=== PATIENT | female | born 1960 | race Caucasian/White ===

== ENCOUNTER 2021-04-20 15:10 | Inpatient (IN) | payer MEDICARE ==
[~2021-04-20] VITALS: Ht 139.7 cm; Wt 56.0 kg
[~2021-04-20 15:10] MED LIST: BUDE0.5A NEB; CALC-104 PO; CLIN-94 PO; CYCL10TA19 PO; FEXO180T81 PO; FLUO40CA2 PO; GABA600T7 PO; GUAI-108 PO; IPRA3AMP29 NEB; IRON18TA PO; LINE600T12 PO; MAGN250T10 PO; MORP30CP12 PO; MORP30TA PO; MULT-650 PO; MUPI22OI2 TP; OMEP40CA7 PO; POTA25TA21 PO; PRED-220 PO; PRED15SO24 PO; PRED5TAB PO; TOPI25TA7 PO; VIT1CAPS12 PO; WARF-31 PO; WARF2.5T71 PO; WARF5TAB2 PO; [UNRECOGNIZED DRUG - CODE] IV
--- NOTE | 2021-04-20 15:17 | PHYS DOC ---
Past Medical History Past Medical History: COPD Additional Past Medical Histor: MRSA, OSTEOPOROSIS, PSORIATIC ARTHRITIS, SEPSIS, CHRONS Past Surgical History: Other Additional Past Surgical Histo: unknown Smoking Status: Former Smoker Alcohol Use: None Drug Use: None General Adult EDM: Chief Complaint: SHORTNESS OF BREATH HPI: HPI: Patient is a 61 year old female who is here via EMS with low oxygen saturation, cough and altered mental status. The patient is reportedly supposed to be on supplemental oxygen per nasal cannula continuously. Somehow her oxygen cannula had come off in, and EMS reports that she was saturating in the 70s on room air for them. The patient reports that she has been coughing yellow sputum for an unknown amount of time. She denies having any chest pain. She does report some shortness of breath. She is incredibly poor historian, she is drowsy, and I am unable to elicit much more helpful or meaningful information from her directly. EMS reports that her was not much more helpful to them on scene either. Upon review of records, it appears the patient has presented very similarly in the past, with history of altered mental status, hypoxic respiratory failure, as well as pneumonia. She has seen pulmonology services here. She has previous history of intubation as well. When I asked her if she took more medications than she was supposed to, she denies this. Review of Systems: Review of Systems: Limited review of systems, secondary to clinical condition and altered mental status. You systems is as documented by HPI. Heart Score: C/O Chest Pain: N/A Risk Factors: Risk Factors: DM, Current or recent (<one month) smoker, HTN, HLP, family history of CAD, obesity. Risk Scores: Score 0 - 3: 2.5% MACE over next 6 weeks - Discharge Home Score 4 - 6: 20.3% MACE over next 6 weeks - Admit for Clinical Observation Score 7 - 10: 72.7% MACE over next 6 weeks - Early Invasive Strategies Allergies: Allergies: Allergies Coded Allergies Type Severity Reaction Last Updated Verified aloe vera Allergy Intermediate 05/23/19 Yes cefepime Allergy Intermediate 06/18/19 Yes meperidine Allergy Intermediate 06/18/19 Yes sulfamethoxazole Allergy Intermediate 05/23/19 Yes trimethoprim Allergy Intermediate 05/23/19 Yes I S O L A T I O N *CONTACT* Allergy Unknown 05/24/19 Yes Physical Exam: PE: Constitutional: She is frail, chronically ill-appearing, appears much older than stated age, relatively disheveled. HENT: Normocephalic, atraumatic, oropharynx is patent and clear, mucous membranes are dry. TMs clear bilaterally. Eyes: PERRL, EOMI, conjunctiva normal, no discharge. Sclera are clear and anicteric. Neck: Neck is supple, trachea midline, no meningismus Cardiovascular: Tachycardic, regular, +2 radial and posterior tibial pulses bilaterally. Lungs & Thorax: Off with yellow sputum is noted. Coarse bilateral breath sounds, including rales and rhonchi. Equal chest rise. No wheezing. No stridor. She does speak in full sentences when she is awake. Abdomen: Abdomen soft, nondistended, no tenderness to palpation. Skin: Warm, dry, no erythema, no rash. Skin is unkempt. No large open wounds. No rash. Back: No deformity or step-offs. Extremities: No limb deformity, pelvis is stable, no peripheral edema noted, no apparent calf tenderness. Neurologic: She is drowsy, but she awakens to voice, opens her eyes to voice, l ocalizes to pain, follows commands. No facial asymmetry. She moves all 4 extremities equally. Sensation appears to be grossly intact. Gag reflex is intact. Her speech is slurred, but she is able to converse in short sentences when awake. Psychologic: Flat, bizarre affect. Current Patient Data: Vital Signs: Vital Signs Date Time Temp Pulse Resp B/P (MAP) Pulse Ox O2 Delivery O2 Flow Rate FiO2 04/20/21 15:12 98.7 101 20 96/54 (68) 95 Nasal Cannula 5.0 98.7 EKG: EKG: EKG is interpreted at 1510 Rhythm is sinus tachycardia Heart rate is 105 bpm [place] is left No STEMI Radiology/Procedures: Radiology/Procedures: IMAGING REPORT Signed PATIENT: JANET IRVIN ACCOUNT: [id number] : 1960 LOCATION: ER AGE: 61 SEX: F EXAM STATUS: PRE ER ORD. PHYSICIAN: MISSY CORADO DO REASON: AMS also cxr PROCEDURE: CT HEAD WO CONTRAST EXAM: CT Head without IV contrast CLINICAL HISTORY: Altered mental status COMPARISON: None. TECHNIQUE: Routine CT of the head without contrast. PQRS compliance statement - One or more of the following individualized dose reduction techniques were utilized for this study: 1. Automated exposure control 2. Adjustment of the mA and/or kV according to patient size 3. Use of iterative reconstruction technique FINDINGS: Examination is limited by motion artifact. There is no evidence of hemorrhage, mass or extra-axial fluid collection. Nguyen-white differentiation is maintained with no evidence of edema. There is no mass effect or shift of the intracranial structures. The ventricles, basilar cisterns and cortical sulci are normal in size and conf iguration for the patients stated age. The cerebellum and brainstem are unremarkable. The calvarium demonstrates no evidence of fracture or focal lesion. There is normal aeration of the visualized paranasal sinuses and mastoid air cells. The visualized portions of the orbits are normal. Atherosclerotic calcifications of the intracranial internal carotid and vertebral arteries is seen. IMPRESSION: No evidence for acute intracranial process. Electronically signed by: Mitchell Blum MD (04/20/2021 4:02 PM) [facility] DICTATED and SIGNED BY: MITCHELL BLUM MD DATE: 04/20/21 [id number] IMAGING REPORT Signed PATIENT: JANET IRVIN ACCOUNT: [id number] : 1960 LOCATION: ER AGE: 61 SEX: F EXAM STATUS: PRE ER ORD. PHYSICIAN: MISSY CORADO DO REASON: cough PROCEDURE: PORTABLE CHEST 1V Site ID: [id number] EXAMINATION: XR CHEST 1V. HISTORY: 61 years Female Reason: cough . COMPARISON: June 01, 2019. Findings: There is prominent interstitial markings in part chronic but appear increased from the previous exam with the small perihilar infiltrates seen. The heart size is mildly enlarged. There is no effusion or pneumothorax. The mediastinum and patrice appear unremarkable. Impression: Mild perihilar infiltrates. Electronically signed by: Awilda Rogers MD (04/20/2021 4:02 PM) [id number] DICTATED and SIGNED BY: AWILDA ROGERS MD DATE: 04/20/21 [id number] Course & Med Decision Making: Course & Med Decision Making Pertinent Labs and Imaging studies reviewed. (See chart for details) I reviewed the patient's previous admissions and consultations. It appears that infectious disease had recommended Zyvox for her last admission. However, it does appear that she has a documented history of prior aspiration pneumonia. She is empirically given IV Zosyn. It does not appear as if she has been admitted within the last 90 days. She does appear to have likely urinary tract infection, though I am unable to elicit any subjective symptoms of UTI from her, however empiric antibiotics are given, as above. She is still protecting her airway. Her oxygen is titrated up to 5 L. She is still quite drowsy but wakes up and converses then falls back asleep. No indication for intubation at this time. A dose of IV Narcan was given, and she did seem to arouse with this. She may ultimately require a Narcan drip, though this does not appear to be necessary at this time. I have explained my recommendation for admission. She was accepted for admission by Dr. Johnson. Teri Disclaimer: Teri Disclaimer: This electronic medical record was generated, in whole or in part, using a voice recognition dictation system. Departure Departure Impression: Primary Impression: Altered mental status Additional Impressions: Pneumonia Chronic respiratory failure with hypoxia COPD (chronic obstructive pulmonary disease) Disposition: ADMITTED INPATIENT Admitting Physician: JEANIE Condition: GUARDED Referrals: MAURICIO MÉNDEZ BRIDGE CONTRACTOR (PCP) MISSY CORADO DO Apr 20, 2021 15:17
[2021-04-20] MEDS ORDERED: IV NORMAL SALINE 1000ML BAG 1,000 ML IV ONE (15:30)
[2021-04-20] MEDS ORDERED: NALOXONE 0.4 MG/ML VIAL. IV ONE ×2 (15:30→19:00)
--- NOTE | 2021-04-20 16:04 | RAD ---
EXAM: CT Head without IV contrast CLINICAL HISTORY: Altered mental status COMPARISON: None. TECHNIQUE: Routine CT of the head without contrast. PQRS compliance statement - One or more of the following individualized dose reduction techniques wer e utilized for this study: 1. Automated exposure control 2. Adjustment of the mA and/or kV according to patient size 3. Use of iterative reconstruction technique FINDINGS: Examination is limited by motion artifact. There is no evidence of hemorrhage, mass or extra-axial fluid collection. Nguyen-white differentiation is maintained with no evidence of edema. There is no mass effect or shift of the intracranial structures. The ventricles, basilar cisterns and cortical sulci are normal in size and configuration for the madai ents stated age. The cerebellum and brainstem are unremarkable. The calvarium demonstrates no evidence of fracture or focal lesion. There is normal aeration of the visualized paranasal sinuses and mastoid air cells. The visualized portions of the orbits are normal. Atherosclerotic calcifications of the intracranial internal carotid and vertebral arteries is seen. IMPRESSION: No evidence for acute intracranial process. Electronically signed by: Mitchell Lyons MD (04/20/2021 4:02 PM) LILY
--- NOTE | 2021-04-20 16:04 | RAD ---
Site ID: [id number] EXAMINATION: XR CHEST 1V. HISTORY: 61 years Female Reason: cough . COMPARISON: June 01, 2019. Findings: There is prominent interstitial markings in part chronic but appear increased from the prev ious exam with the small perihilar infiltrates seen. The heart size is mildly enlarged. There is no e ffusion or pneumothorax. The mediastinum and patrice appear unremarkable. Impression: Mild perihilar infiltrates. Electronically signed by: Alberto Rogers MD (04/20/2021 4:02 PM) [id number]
[2021-04-20 16:26] LABS: BILIRUBIN,URINE NEGATIVE (NEG); CLARITY,URINE CLEAR; COLOR,URINE YELLOW; NITRITE,URINE NEGATIVE (NEG); PROTEIN,URINE NEGATIVE (NEG-TRACE)
[2021-04-20 16:34] LABS: BARBITURATES NEG (NEG); BENZODIAZEPINES NEG (NEG); CANNABINOIDS NEG (NEG); COCAINE NEG (NEG); METHADONE NEG (NEG); OPIATES POS (NEG); PHENCYCLIDINE NEG (NEG)
[2021-04-20 16:43] LABS: BASO # 0.1 x10^3/uL (0.0-0.2); BASO % 1 % (0-3); EOS # 0.3 x10^3/uL (0.0-0.7); EOS % 2 % (0-3); HEMATOCRIT 35.4 % (36.0-47.0); HEMOGLOBIN 11.7 g/dL (12.0-15.5); LYMPH # 2.8 x10^3/uL (1.0-4.8); LYMPH % 20 % (24-48); MEAN CORPUSCULAR HEMOGLOBIN 26 pg (25-35); MEAN CORPUSCULAR HGB CONC 33 g/dL (31-37); MEAN CORPUSCULAR VOLUME 80 fL (79-100); MONO # 1.3 x10^3/uL (0.0-1.1); MONO % 9 % (0-9); NEUT # 9.6 x10^3/uL (1.8-7.7); NEUT % 68 % (31-73); PLATELET COUNT 233 x10^3/uL (140-400); RED BLOOD COUNT 4.44 x10^6/uL (3.50-5.40); RED CELL DISTRIBUTION WIDTH 15.5 % (11.5-14.5); WHITE BLOOD COUNT 14.1 x10^3/uL (4.0-11.0)
[2021-04-20 16:58] LABS: AMPHETAMINE/METHAMPHETAMINE NEG (NEG)
[2021-04-20 17:00] LABS: AMORPHOUS SEDIMENT,UR PRESENT /HPF; BACTERIA,URINE MODERATE /HPF (0-FEW)
[2021-04-20 17:01] LABS: RBC,URINE 0 /HPF (0-2)
[2021-04-20 17:39] LABS: % BANDS 1 % (0-9); % EOS 3 % (0-5); % LYMPHS 27 % (24-48); % MONOS 5 % (0-10); % SEGS 64 % (35-66)
[2021-04-20 17:40] LABS: PLT ESTIMATE ADEQUATE (ADEQUATE); POIKILOCYTOSIS SLIGHT; TEAR DROP CELLS OCC
[2021-04-20 17:42] LABS: ANISOCYTOSIS SLIGHT; CALCIUM 8.4 mg/dL (8.5-10.1); CREATININE 0.5 mg/dL (0.6-1.0); OVALOCYTES OCC; POTASSIUM 4.4 mmol/L (3.5-5.1)
[2021-04-20 17:49] LABS: ALBUMIN 3.2 g/dL (3.4-5.0); MAGNESIUM 1.9 mg/dL (1.8-2.4); TOTAL BILIRUBIN 0.4 mg/dL (0.2-1.0); TOTAL PROTEIN 6.5 g/dL (6.4-8.2)
[2021-04-20] MEDS ORDERED: methylPREDNISolone SOD SUCC PF 125 MG/2 ML VIAL. IV ONE (18:30)
[2021-04-20] MEDS: IV NORMAL SALINE 1000ML BAG 1,000 ML IV ONE (19:00)
[2021-04-20] MEDS ORDERED: ONDANSETRON PF 4 MG/2 ML VIAL. IVP PRN (19:00)
[2021-04-20] MEDS: PIPERACILLIN/TAZOBACTAM 3.375 GM in IV NORMAL SALINE 50ML 50 ML IV SCH (19:00)
[2021-04-21] VITALS (7 sets, daily range): BP systolic 100–122; BP diastolic 53–79
[2021-04-21] MEDS: PIPERACILLIN/TAZOBACTAM 3.375 GM in IV NORMAL SALINE 50ML 50 ML IV SCH ×5 (00:14→23:46)
[2021-04-21] MEDS: IV NORMAL SALINE 1000ML BAG 1,000 ML IV ONE (00:18)
--- NOTE | 2021-04-21 00:36 | NUR ---
The patient, JANET IRVIN, 61 y/o, F admitted by LOAN LANG III, DO, was given written information regarding hospital policies, unit procedures and contact persons. Valuables were checked and left with her.
--- NOTE | 2021-04-21 04:59 | EKG ---
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
--- NOTE | 2021-04-21 09:19 | PDOC ---
PULMONARY PROGRESS NOTES DATE: 04/21/21 TIME: 09:19 Vitals Vital Signs Date Time Temp Pulse Resp B/P (MAP) Pulse Ox O2 Delivery O2 Flow Rate FiO2 04/21/21 07:00 98.0 80 18 100/61 (74) 96 98.0 04/21/21 00:01 Nasal Cannula 5.0 General: Alert, No acute distress Lungs: Clear, Crackles Cardiovascular: S1, S2 Abdomen: Soft, Non-tender, Other Extremities: No Edema, Other Labs Laboratory Tests Test 04/20/21 16:15 04/20/21 16:28 04/20/21 18:20 Urine Collection Type U cath Urine Color Yellow Urine Clarity Clear Urine pH 7.0 (<5.0-8.0) Urine Specific [place] 1.015 (1.000-1.030) Urine Protein Negative mg/dL (NEG-TRACE) Urine Glucose (UA) Negative mg/dL (NEG) Urine Ketones (Stick) 15 mg/dL (NEG) Urine Blood Negative (NEG) Urine Nitrite Negative (NEG) Urine Bilirubin Negative (NEG) Urine Urobilinogen Dipstick 1.0 mg/dL (0.2 mg/dL) Urine Leukocyte Esterase Negative (NEG) Urine RBC 0 /HPF (0-2) Urine WBC 5-10 /HPF (0-4) Urine Squamous Epithelial Cells Few /LPF Urine Amorphous Sediment Present /HPF Urine Bacteria Moderate /HPF (0-FEW) Urine Mucus Slight /LPF Urine Opiates Screen Pos (NEG) Urine Methadone Screen Neg (NEG) Urine Barbiturates Neg (NEG) Urine Phencyclidine Screen Neg (NEG) Urine Amphetamine/Methamphetamine Neg (NEG) Urine Benzodiazepines Screen Neg (NEG) Urine Cocaine Screen Neg (NEG) Urine Cannabinoids Screen Neg (NEG) Urine Ethyl Alcohol Neg (NEG) White Blood Count 14.1 x10^3/uL (4.0-11.0) Red Blood Count 4.44 x10^6/uL (3.50-5.40) Hemoglobin 11.7 g/dL (12.0-15.5) Hematocrit 35.4 % (36.0-47.0) Mean Corpuscular Volume 80 fL (79-100) Mean Corpuscular Hemoglobin 26 pg (25-35) Mean Corpuscular Hemoglobin Concent 33 g/dL (31-37) Red Cell Distribution Width 15.5 % (11.5-14.5) Platelet Count 233 x10^3/uL (140-400) Neutrophils (%) (Auto) 68 % (31-73) Lymphocytes (%) (Auto) 20 % (24-48) Monocytes (%) (Auto) 9 % (0-9) Eosinophils (%) (Auto) 2 % (0-3) Basophils (%) (Auto) 1 % (0-3) Neutrophils # (Auto) 9.6 x10^3/uL (1.8-7.7) Lymphocytes # (Auto) 2.8 x10^3/uL (1.0-4.8) Monocytes # (Auto) 1.3 x10^3/uL (0.0-1.1) Eosinophils # (Auto) 0.3 x10^3/uL (0.0-0.7) Basophils # (Auto) 0.1 x10^3/uL (0.0-0.2) Segmented Neutrophils % 64 % (35-66) Band Neutrophils % 1 % (0-9) Lymphocytes % 27 % (24-48) Monocytes % 5 % (0-10) Eosinophils % 3 % (0-5) Platelet Estimate Adequate (ADEQUATE) Large Platelets Present Poikilocytosis Slight Basophilic Stippling Present Anisocytosis Slight Tear Drop Cells Occ Ovalocytes Occ Sodium Level 140 mmol/L (136-145) Potassium Level 4.4 mmol/L (3.5-5.1) Chloride Level 106 mmol/L (98-107) Carbon Dioxide Level 22 mmol/L (21-32) Anion Gap 12 (6-14) Blood Urea Nitrogen 15 mg/dL (7-20) Creatinine 0.5 mg/dL (0.6-1.0) Estimated GFR (Cockcroft-Gault) 125.0 BUN/Creatinine Ratio 30 (6-20) Glucose Level 96 mg/dL (70-99) Lactic Acid Level 1.2 mmol/L (0.4-2.0) Calcium Level 8.4 mg/dL (8.5-10.1) Magnesium Level 1.9 mg/dL (1.8-2.4) Total Bilirubin 0.4 mg/dL (0.2-1.0) Aspartate Amino Transf (AST/SGOT) 57 U/L (15-37) Alanine Aminotransferase (ALT/SGPT) 40 U/L (14-59) Alkaline Phosphatase 110 U/L (46-116) Ammonia 17 mcmol/L (11-34) Creatine Kinase 151 U/L (26-192) Troponin I High Sensitivity 6 ng/L (4-50) DX-Qff-A-Type Natriuretic Peptide 589 pg/mL (0-124) Total Protein 6.5 g/dL (6.4-8.2) Albumin 3.2 g/dL (3.4-5.0) Albumin/Globulin Ratio 1.0 (1.0-1.7) Ethyl Alcohol Level < 10 mg/dL (0-10) SARS-CoV-2 Antigen (Rapid) Negative (NEGATIVE) Laboratory Tests Test 04/20/21 16:15 04/20/21 16:28 04/20/21 18:20 Urine Collection Type U cath Urine Color Yellow Urine Clarity Clear Urine pH 7.0 (<5.0-8.0) Urine Specific [place] 1.015 (1.000-1.030) Urine Protein Negative mg/dL (NEG-TRACE) Urine Glucose (UA) Negative mg/dL (NEG) Urine Ketones (Stick) 15 mg/dL (NEG) Urine Blood Negative (NEG) Urine Nitrite Negative (NEG) Urine Bilirubin Negative (NEG) Urine Urobilinogen Dipstick 1.0 mg/dL (0.2 mg/dL) Urine Leukocyte Esterase Negative (NEG) Urine RBC 0 /HPF (0-2) Urine WBC 5-10 /HPF (0-4) Urine Squamous Epithelial Cells Few /LPF Urine Amorphous Sediment Present /HPF Urine Bacteria Moderate /HPF (0-FEW) Urine Mucus Slight /LPF Urine Opiates Screen Pos (NEG) Urine Methadone Screen Neg (NEG) Urine Barbiturates Neg (NEG) Urine Phencyclidine Screen Neg (NEG) Urine Amphetamine/Methamphetamine Neg (NEG) Urine Benzodiazepines Screen Neg (NEG) Urine Cocaine Screen Neg (NEG) Urine Cannabinoids Screen Neg (NEG) Urine Ethyl Alcohol Neg (NEG) White Blood Count 14.1 x10^3/uL (4.0-11.0) Red Blood Count 4.44 x10^6/uL (3.50-5.40) Hemoglobin 11.7 g/dL (12.0-15.5) Hematocrit 35.4 % (36.0-47.0) Mean Corpuscular Volume 80 fL (79-100) Mean Corpuscular Hemoglobin 26 pg (25-35) Mean Corpuscular Hemoglobin Concent 33 g/dL (31-37) Red Cell Distribution Width 15.5 % (11.5-14.5) Platelet Count 233 x10^3/uL (140-400) Neutrophils (%) (Auto) 68 % (31-73) Lymphocytes (%) (Auto) 20 % (24-48) Monocytes (%) (Auto) 9 % (0-9) Eosinophils (%) (Auto) 2 % (0-3) Basophils (%) (Auto) 1 % (0-3) Neutrophils # (Auto) 9.6 x10^3/uL (1.8-7.7) Lymphocytes # (Auto) 2.8 x10^3/uL (1.0-4.8) Monocytes # (Auto) 1.3 x10^3/uL (0.0-1.1) Eosinophils # (Auto) 0.3 x10^3/uL (0.0-0.7) Basophils # (Auto) 0.1 x10^3/uL (0.0-0.2) Segmented Neutrophils % 64 % (35-66) Band Neutrophils % 1 % (0-9) Lymphocytes % 27 % (24-48) Monocytes % 5 % (0-10) Eosinophils % 3 % (0-5) Platelet Estimate Adequate (ADEQUATE) Large Platelets Present Poikilocytosis Slight Basophilic Stippling Present Anisocytosis Slight Tear Drop Cells Occ Ovalocytes Occ Sodium Level 140 mmol/L (136-145) Potassium Level 4.4 mmol/L (3.5-5.1) Chloride Level 106 mmol/L (98-107) Carbon Dioxide Level 22 mmol/L (21-32) Anion Gap 12 (6-14) Blood Urea Nitrogen 15 mg/dL (7-20) Creatinine 0.5 mg/dL (0.6-1.0) Estimated GFR (Cockcroft-Gault) 125.0 BUN/Creatinine Ratio 30 (6-20) Glucose Level 96 mg/dL (70-99) Lactic Acid Level 1.2 mmol/L (0.4-2.0) Calcium Level 8.4 mg/dL (8.5-10.1) Magnesium Level 1.9 mg/dL (1.8-2.4) Total Bilirubin 0.4 mg/dL (0.2-1.0) Aspartate Amino Transf (AST/SGOT) 57 U/L (15-37) Alanine Aminotransferase (ALT/SGPT) 40 U/L (14-59) Alkaline Phosphatase 110 U/L (46-116) Ammonia 17 mcmol/L (11-34) Creatine Kinase 151 U/L (26-192) Troponin I High Sensitivity 6 ng/L (4-50) TP-Ucr-E-Type Natriuretic Peptide 589 pg/mL (0-124) Total Protein 6.5 g/dL (6.4-8.2) Albumin 3.2 g/dL (3.4-5.0) Albumin/Globulin Ratio 1.0 (1.0-1.7) Ethyl Alcohol Level < 10 mg/dL (0-10) SARS-CoV-2 Antigen (Rapid) Negative (NEGATIVE) Medications Active Scripts Medications Dose Route/Sig Max Daily Dose Days Date Category Budesonide 0.5 Mg/2 Ml Ampul.neb 0.5 Mg NEB RTBID 06/04/19 Rx Duoneb 0.5-3(2.5) Mg/3 Ml (Albuterol/Ipratropium) 3 Ml Ampul.neb 3 Ml NEB Q4HRS 06/04/19 Rx Morphine Sulfate Er (Morphine Sulfate) 30 Mg Cpmp.24hr 30 Mg PO BID PRN 06/04/19 Rx Warfarin Sodium 5 Mg Tablet 5 Mg PO QMWFSA 05/24/19 Reported Warfarin Sodium 2.5 Mg Tablet 2.5 Mg PO QTUTHSA 05/24/19 Reported Magnesium (Magnesium Oxide) 250 Mg Tablet 2 Tab PO DAILY 30 05/24/19 Reported Citracal + D Maximum Caplet (Calcium Citrate/Vitamin D3) 1 Each Tablet 1 Each PO DAILYBFRLUN 05/24/19 Reported Centrum Silver Women Tablet (Multivits-Min/Iron/FA/Lutein) 1 Each Tablet 1 Each PO 3X/WEEK 05/24/19 Reported Preservision Areds Softgel (Vit A/Vit C/Vit E/Zinc/Copper) 1 Each Capsule 2 Cap PO BID 30 05/24/19 Reported Klor-Con-Ef 25 Meq Tab Eff (Potassium Bicarbonate/Cit Ac) 25 Meq Tablet.eff 1 Tab PO DAILY 30 05/24/19 Reported Loraine Allergy (Fexofenadine Hcl) 180 Mg Tablet 1 Tab PO DAILY 14 05/24/19 Reported Iron 18 Mg Tablet 65 Mg PO DAILYBFRLUN 05/24/19 Reported Cyclobenzaprine Hcl 10 Mg Tablet 1 Tab PO TID 05/23/19 Reported Gabapentin 600 Mg Tablet 600 Mg PO TID 05/23/19 Reported Topiramate 25 Mg Tablet 1 Tab PO BID 30 05/23/19 Reported Fluoxetine Hcl 40 Mg Capsule 1 Cap PO DAILY 05/23/19 Reported Omeprazole 40 Mg Capsule.dr 1 Cap PO DAILY 05/23/19 Reported Impression . Full consult dictated Acute hypoxemic respiratory failure Possible aspiration pneumonia pneumonia Obtain CT GUNNAR TRIPP MD Apr 21, 2021 09:19
--- NOTE | 2021-04-21 11:15 | NUR ---
SW following. Discussed with RN, pt from home with , 5L (uses 3L at home), cardiac diet, COVID-19 negative. Pulmonology following. RN advised no SW needs at this time. SW will continue to follow.
--- NOTE | 2021-04-21 11:42 | HP ---
DATE OF SERVICE: 04/21/2021 ADMIT DATE: 04/20/2021 CHIEF COMPLAINT: Shortness of breath. HISTORY OF PRESENT ILLNESS: The patient is a pleasant 61-year-old female who has COPD. She presented to the ER with shortness of breath and cough. She is supposed to be on oxygen, but I think she is perhaps noncompliant with it at times. When EMS got there, her O2 sat was in the 70s. She has productive yellow sputum. She feels very weak. Her symptoms are worse with moving, better with sitting still. I discussed the case with ER physician. We admitted the patient with consultation to Pulmonary Medicine. PAST MEDICAL HISTORY: COPD, MRSA, osteoporosis, psoriatic arthritis, sepsis, Crohn's, previous tobacco abuse, polypharmacy, allergic rhinitis, asthma, muscle spasms, anemia, chronic anticoagulation, chronic pain, neuropathy, depression and anxiety. ALLERGIES: ALOE VERA, CEFEPIME, MEPERIDINE, SULFA AND TRIMETHOPRIM. FAMILY HISTORY: Diabetes. SOCIAL HISTORY: She quit smoking. No drink or drugs. MEDICATIONS: Reviewed. She is on 17 medications. REVIEW OF SYSTEMS: GENERAL: No history of weight change, weakness or fevers. SKIN: No bruising, hair changes or rashes. EYES: No blurred, double or loss of vision. NOSE AND THROAT: No history of nosebleeds, hoarseness or sore throat. HEART: No history of palpitations, chest pain or shortness of breath on exertion. LUNGS: She complains of shortness of breath. GASTROINTESTINAL: Denies changes in appetite, nausea, vomiting, diarrhea or constipation. GENITOURINARY: No history of frequency, urgency, hesitancy or nocturia. NEUROLOGIC: Denies history of numbness, tingling, tremor or weakness. PSYCHIATRIC: No history of panic, anxiety or depression. ENDOCRINE: No history of heat or cold intolerance, polyuria or polydipsia. EXTREMITIES: Denies muscle weakness, joint pain, pain on walking or stiffness. PHYSICAL EXAMINATION: VITALS: Within normal limits and are stable. GENERAL: No apparent distress. Alert and oriented. HEENT: Normal cephalic atraumatic, external auditory canals are patent. EYES: Extraocular muscles are intact, pupils are equally round and reactive to light and accommodation. MUSCULOSKELETAL: Well developed, well nourished, good range of motion. ENDOCRINE: No thyromegaly was palpated. LYMPHATICS: No cervical chain or axillary nodes were noted. HEMATOPOIETIC: No bruising. NECK: Supple, no JVD, no thyromegaly was noted. LUNGS: She has decreased breath sounds. HEART: RRR, S1, S2 present. Peripheral pulses intact, no obvious murmurs were noted. ABDOMEN: Soft, nontender. Positive bowel sounds no organomegaly, normal bowel sounds. EXTREMITIES: Without any cyanosis, clubbing, or edema. Pedal pulses intact, Homans sign is negative. NEUROLOGIC: Normal speech, normal tone. A and O x 3, moves all extremities, no obvious focal deficits. PSYCHIATRIC: Normal affect, normal mood. Stable. SKIN: No ulcerations or rashes, good skin turgor, no jaundice. VASCULAR: Good capillary refill, neurovascular bundle appears to be intact. LABORATORY DATA: White count is 14, hemoglobin is 11.7, platelets 233. Electrolytes are normal. Troponin is 6. BNP 589. Drug screen positive for opiates. Urinalysis negative. COVID testing negative. Chest x-ray: Mild peripheral infiltrates. ASSESSMENT AND PLAN: Respiratory failure, probably secondary to pneumonia and chronic obstructive pulmonary disease. The patient has been admitted. We are starting IV Solu-Medrol, IV antibiotics, DuoNebs, O2 per nasal cannula. Home meds. Deep venous thrombosis prophylaxis. Full code. Consult Pulmonary Medicine. Long-term prognosis is guarded. MARIO DR: Balwinder TID: [id number]
[2021-04-21] MEDS: IPRATRPIUM/ALBUTEROL 0.5/2.5MG 3 ML NEBU. NEB SCH ×3 (12:00→20:39)
[2021-04-21] MEDS: methylPREDNISolone SOD SUCC PF 40 MG/ML VIAL. IV SCH ×2 (12:00→21:45)
--- NOTE | 2021-04-21 12:49 | NUR ---
HOME MEDICATION LIST- FLUOXETINE CAP 40MG- 1 CAP BY MOUTH DAILY NARATRIPTAN TAB 2.5 MG- TAKE 1 TAB BY MOUTH AT ONSET, MAY REPEAT IN 2 HOURS IF NEEDED TOPIRAMATE TAB 50 MG- TAKE ONE AND ONE HALF TABLET BY MOUTH EVERY 12 HOURS PREGABALIN CAP 100 MG- TAKE 1 CAP BY MOUTH IN MORNING, THEN ONE CAP IN THE AFTERNOON, AND 2 CAPS AT BEDTIME WARFARIN TAB 5 MG- TAKE 1 TAB BY MOUTH DIRECTED WARFARIN TAB 2.5 MG- 1 TAB BY MOUTH ONCE A DAY TIZANIDINE TAB 2 MG- TAKE ONE TAB BY MOUTH BID NEEDED. MAY ALSO TAKE 2 TAB AT BEDTIME NEEDED. HYDROXYZ HCL TAB 25MG- TAKE ONE TAB BY MOUTH 4 TIMES A DAY NEEDED ROSUVASTATIN TAB 20MG- TAKE ONE TAB BY MOUTH ONCE A DAY
--- NOTE | 2021-04-21 14:29 | NUR ---
Bedside Swallow evaluation completed. Please refer to full report in intervention section for additional information. Impressions: Mild oropharyngeal dysphagia w/ increased risk of aspiration when pt not sitting upright or leaning to L. Primary concern is poor mastication r/t dentition issues and positioning. No overt s/s aspiration during evaluation including repetitive large bore straw drinking and mixed consistencies. While pt would benefit from modified diet, however pt and pt's strongly refuse. Recommendations: Continue current diet, sit upright w/ positioning not to lean L. Nutrition consult. ST f/u 1-2 visits for ongoing assessment of swallow safety and education.
[2021-04-21] MEDS ORDERED: WARF-31 PO (15:12)
[2021-04-21] MEDS ORDERED: CRESTOR40 MG PO (15:12)
[2021-04-21] MEDS ORDERED: FLUO40CA2 PO (15:12)
[2021-04-21] MEDS ORDERED: NARA2.5T PO (15:12)
[2021-04-21] MEDS ORDERED: TIZA-75 PO ×2 (15:12)
[2021-04-21] MEDS ORDERED: TOPI50TA8 PO (15:12)
[2021-04-21] MEDS ORDERED: HYDR25TA PO (15:12)
[2021-04-21] MEDS ORDERED: PREG100C PO ×2 (15:12)
[2021-04-21] MEDS ORDERED: WARF2.5T71 PO (15:12)
--- NOTE | 2021-04-21 16:29 | CONS ---
DATE OF CONSULTATION: 04/21/2021 ATTENDING PHYSICIAN: Suellen Johnson DO REASON FOR CONSULTATION: The patient is seen in pulmonary consultation at the request of Dr. Johnson for abnormal x-ray. HISTORY OF PRESENT ILLNESS: The patient is a 61-year-old female who presented via EMS for low oxygen saturation, cough and altered mental status. She was admitted, placed on IV antibiotics, oxygen supplementation. Chest x-ray was obtained. I personally reviewed it, there is a right upper lobe infiltrate, which is new. The patient is currently on IV Zosyn. She is also receiving nebulized treatments and now Solu-Medrol. According to the Emergency Room record, the patient initially was lethargic and confused. She appears to have improved since then. PAST MEDICAL HISTORY: Remarkable for previous admission here in 2019. I saw her at that time, she had respiratory failure, hypercapnic in nature and possible pneumonia. She was treated for acute exacerbation of chronic obstructive pulmonary disease. At that time, she was intubated. She was successfully extubated and discharged home. The patient states that since then she has not smoked. She has a history of chronic bronchitis, hypertension, obstructive sleep apnea. PAST SURGICAL HISTORY: Discontinued tobacco use in 2019. MEDICATIONS: Current medication list was reviewed. Home medication list was likewise reviewed. ALLERGIES: SHE HAS MULTIPLE ALLERGIES PLEASE SEE THE LIST. SHE IS ALLERGIC TO SULFAMETHOXAZOLE, TRIMETHOPRIM, CEFEPIME AND MEPERIDINE. FAMILY HISTORY: Noncontributory. PHYSICAL EXAMINATION: VITAL SIGNS: Stable. O2 saturation currently on 5 liters was greater than 92%. HEENT: Eyes: The sclerae were nonicteric. NECK: Jugular venous distention was not elevated. No lymphadenopathy. CHEST: Full expansion. LUNGS: Rales and rhonchi throughout both lung medrano. CARDIOVASCULAR: Regular rate and rhythm with S1, S2, no S3. ABDOMEN: Soft. EXTREMITIES: No clubbing, cyanosis. Minimal edema. NEUROLOGIC: The patient was awake, alert, following commands. A detailed neuro exam was not performed. LABORATORY DATA: Reviewed. Serology for SARS-CoV-2 was negative. UA was noted. Toxicology screen was positive for opiates. Electrolytes were noted. BUN and creatinine normal. Albumin was slightly low. White count was 14,000, hemoglobin and hematocrit were noted. Chest x-ray as indicated above. IMPRESSION: 1. Acute hypoxemic respiratory failure, multifactorial. 2. Abnormal x-ray, compatible with right upper lobe infiltrates, suspect possible aspiration. 3. Abnormal x-ray. 4. Acute exacerbation of chronic obstructive pulmonary disease. 5. Tobacco dependence in remission since 2019. 6. Toxic encephalopathy, present upon admission. 7. Protein malnutrition, present upon admission. 8. Leukocytosis. PLAN: 1. Recommend continued support with oxygen supplementation. 2. Zosyn. 3. Solu-Medrol. 4. Obtain CT chest to better delineate the infiltrates. 5. Speech evaluation. 6. Titrate FiO2 down. I do appreciate the privilege in sharing in the patient's care. MAGDY/TREVOR DR: Lexi TID: [id number]
--- NOTE | 2021-04-21 16:49 | RAD ---
EXAM: CT CHEST WITHOUT CONTRAST HISTORY: Infiltrate COMPARISON: CT chest 06/18/2019 and chest radiograph 04/20/2021 TECHNIQUE: Helical CT of the chest performed without contrast. Coronal and sagittal reformats were o btained. One or more of the following individualized dose reduction techniques were utilized for this examinat ion: 1. Automated exposure control 2. Adjustment of the mA and/or kV according to patient size 3. Use of iterative reconstruction technique. FINDINGS: Thyroid gland and thoracic inlet: Unremarkable. Heart and great vessels: The heart is normal in size. There are coronary artery calcifications. No pe ricardial effusion. Thoracic aorta is normal in caliber. Mediastinum and ptarice: There are small mediastinal and hilar lymph nodes, nonspecific. Lungs and pleura: There are consolidative opacities in the lower lobes. Mild patchy ground glass opac ities in the right upper lobe and right middle lobe. Suspect mild emphysema. No pleural effusion. Chest wall and axillae: No axillary lymphadenopathy. Chest wall is unremarkable. Upper abdomen: The visualized portion of the upper abdomen is unremarkable. Bones: There has been progressive height loss of the T12 compression fracture since 06/18/2019, now s evere with vertebral plana deformity and new 6 mm retropulsion of the posterior cortex. This results in moderate to severe canal narrowing. There is also worsened, severe height loss of the T5 compressi on fracture, now 75 percent vertebral body height loss anteriorly. Slight posterior bulging but no re tropulsion of the posterior cortex. There is no acute fracture. Other: There is a spinal stimulator with the battery generator in the lower left back and lead extend ing along the thoracic canal. IMPRESSION: 1. Confluent opacities in the lower lobes and mild groundglass opacities in the right upper and midd le lobes, suspicious for pneumonia. 2. Worsened T12 vertebral body fracture, now severe with vertebral plana deformity and 6 mm retropul kosta of the posterior cortex. This results in moderate to severe canal narrowing. This has worsened f 2018 but is of uncertain acuity. Correlate with physical exam. MRI of the thoracic spine could be obtained to further evaluate if there is concern for acute cord compression. 3. Worsened, now severe height loss of the T5 compression fracture without retropulsion of cortex. FOR INTERNAL CODING PURPOSES Critical result: Findings discussed with the patient's nurse at 04/21/2021 4:45 PM. RESULT CODE: (C) Electronically signed by: Jen Matson MD (04/21/2021 4:47 PM) [id number]
[2021-04-21] MEDS ORDERED: tiZANidine 4 MG TABLET. PO PRN (17:30)
[2021-04-21] MEDS ORDERED: hydrOXYzine 25 MG TABLET PO PRN (17:30)
[2021-04-21 19:25] LABS: PROTHROMBIN TIME PATIENT 49.8 SEC (11.7-14.0)
[2021-04-21] MEDS: tiZANidine 4 MG TABLET. PO PRN (21:43)
[2021-04-21] MEDS: TOPIRAMATE 25 MG TABLET. PO SCH (21:44)
[2021-04-21] MEDS: ATORVASTATIN CALCIUM 40 MG TABLET. PO SCH (21:44)
[2021-04-21] MEDS: PREGABALIN 50 MG CAPSULE PO SCH (21:44)
[2021-04-22 03:00] VITALS: BP 122/73
[2021-04-22 04:50] LABS: PROTHROMBIN TIME PATIENT 41.8 SEC (11.7-14.0)
--- NOTE | 2021-04-22 05:00 | NUR ---
Critical INR 4.5 reported to Yasmine BRYANT at 0501am
[2021-04-22] MEDS: PIPERACILLIN/TAZOBACTAM 3.375 GM in IV NORMAL SALINE 50ML 50 ML IV SCH ×4 (05:49→23:54)
[2021-04-22] MEDS: IPRATRPIUM/ALBUTEROL 0.5/2.5MG 3 ML NEBU. NEB SCH ×4 (07:29→20:00)
[2021-04-22 07:30] VITALS: BP 102/54
--- NOTE | 2021-04-22 08:12 | PDOC ---
[facility] PROGRESS NOTE Date of Service DOS: DATE: 04/22/21 TIME: 08:08 Chief Complaint Chief Complaint Pneumonia Chronic Respiratory Failure with Hypoxia COPD AMS Osteoporosis Psoriatic Arthritis Sepsis Crohn's Disease Potential Acute Cord Compression (due to worsened height of T5 compression fracture from chest CT) History of Present Illness History of Present Illness 04/22: Pt was seen, evaluated, and their chart was reviewed. Pt states that she's feeling okay and inquiring about her Chest CT scan in which she was explained she has pneumonia. Discussed with RN and SW. Vitals/I&O Vitals/I&O: Vital Signs Date Time Temp Pulse Resp B/P (MAP) Pulse Ox O2 Delivery O2 Flow Rate FiO2 04/22/21 07:30 98.5 79 18 102/54 (70) 96 Nasal Cannula 5.0 98.5 I & O 04/21/21 04/21/21 04/22/21 15:00 23:00 07:00 Intake Total 190 ml 250 ml 400 ml Output Total 300 ml 300 ml Balance 190 ml -50 ml 100 ml Physical Exam General: Alert, Cooperative, No acute distress Heart: Regular rate Lungs: Other (COPD, Pneumonia) Abdomen: Normal bowel sounds Extremities: No clubbing, No cyanosis, No edema Skin: No rashes Labs Labs: Laboratory Tests Test 04/21/21 19:00 04/22/21 03:20 Prothrombin Time 49.8 SEC (11.7-14.0) 41.8 SEC (11.7-14.0) Prothromb Time International Ratio 5.7 (0.8-1.1) 4.5 (0.8-1.1) Review of Systems Review of Systems: ROS Negative Assessment and Plan Assessmemt and Plan Problems Medical Problems: (1) Altered mental status Status: Acute (2) Chronic respiratory failure with hypoxia Status: Acute (3) COPD (chronic obstructive pulmonary disease) Status: Acute (4) Pneumonia Status: Acute Pneumonia Chronic Respiratory Failure with Hypoxia COPD AMS Osteoporosis Psoriatic Arthritis Sepsis Crohn's Disease Potential Acute Cord Compression (due to worsened height of T5 compression fracture from chest CT) Plan: - Continue IV Abx and fluids, and give oxygen as needed - Trend labs - DVT Prophylaxis - PTOT Appreciate subspecialist input Encourage p.o. intake Home meds FULL CODE Comment Review of Relevant I have reviewed the following items fernando (where applicable) has been applied. Medications: Current Medications Medications (Trade) Dose Ordered Sig/Hodan Route PRN Reason Start Time Stop Time Status Last Admin Dose Admin Methylprednisolone Sodium Succinate (SOLU-Medrol 40MG VIAL) 40 mg BID IV 04/21/21 12:00 04/21/21 21:45 Albuterol/ Ipratropium (Duoneb) 3 ml RTQID NEB 04/21/21 12:00 04/22/21 07:29 Tizanidine HCl (Zanaflex) 4 mg PRN QHS PRN PO MUSCLE SPASMS 04/21/21 17:30 04/21/21 21:43 Pregabalin (Lyrica) 200 mg HS PO 04/21/21 21:00 04/21/21 21:44 Atorvastatin Calcium (Lipitor) 80 mg QHS PO 04/21/21 21:00 04/21/21 21:44 Topiramate (Topamax) 75 mg Q12HR PO 04/21/21 21:00 04/21/21 21:44 Warfarin Sodium (Coumadin Per Pharmacy) 1 each PRN DAILY PRN MC SEE COMMENTS 04/21/21 17:30 04/21/21 17:48 Warfarin Sodium (Coumadin - No Dose Today) 1 each 1X ONCE MC 04/21/21 21:00 04/21/21 21:01 DC 04/21/21 21:00 Justifications for Admission Other Justification LOAN LANG III DO Apr 22, 2021 08:12
[2021-04-22] MEDS: FLUoxetine HCL 20 MG CAPSULE PO SCH (08:42)
[2021-04-22] MEDS: methylPREDNISolone SOD SUCC PF 40 MG/ML VIAL. IV SCH ×2 (08:42→20:36)
[2021-04-22] MEDS: PREGABALIN 50 MG CAPSULE PO SCH ×3 (08:43→20:37)
[2021-04-22] MEDS: TOPIRAMATE 25 MG TABLET. PO SCH ×2 (08:45→20:38)
--- NOTE | 2021-04-22 09:13 | PDOC ---
PULMONARY PROGRESS NOTES DATE: 04/22/21 TIME: 09:13 Subjective Patient feels about the same, shortness of breath, cough nonproductive Vitals Vital Signs Date Time Temp Pulse Resp B/P (MAP) Pulse Ox O2 Delivery O2 Flow Rate FiO2 04/22/21 07:30 98.5 79 18 102/54 (70) 96 Nasal Cannula 5.0 98.5 ROS: No Nausea, No Chest Pain, No Abdominal Pain, No Increase Cough General: Alert, No acute distress Lungs: Other (COPD, Pneumonia) Cardiovascular: S1, S2 Abdomen: Soft, Non-tender, Other Extremities: No Edema, Other Labs Laboratory Tests Test 04/20/21 16:15 04/20/21 16:28 04/20/21 18:20 04/21/21 19:00 Urine Collection Type U cath Urine Color Yellow Urine Clarity Clear Urine pH 7.0 (<5.0-8.0) Urine Specific [place] 1.015 (1.000-1.030) Urine Protein Negative mg/dL (NEG-TRACE) Urine Glucose (UA) Negative mg/dL (NEG) Urine Ketones (Stick) 15 mg/dL (NEG) Urine Blood Negative (NEG) Urine Nitrite Negative (NEG) Urine Bilirubin Negative (NEG) Urine Urobilinogen Dipstick 1.0 mg/dL (0.2 mg/dL) Urine Leukocyte Esterase Negative (NEG) Urine RBC 0 /HPF (0-2) Urine WBC 5-10 /HPF (0-4) Urine Squamous Epithelial Cells Few /LPF Urine Amorphous Sediment Present /HPF Urine Bacteria Moderate /HPF (0-FEW) Urine Mucus Slight /LPF Urine Opiates Screen Pos (NEG) Urine Methadone Screen Neg (NEG) Urine Barbiturates Neg (NEG) Urine Phencyclidine Screen Neg (NEG) Urine Amphetamine/Methamphetamine Neg (NEG) Urine Benzodiazepines Screen Neg (NEG) Urine Cocaine Screen Neg (NEG) Urine Cannabinoids Screen Neg (NEG) Urine Ethyl Alcohol Neg (NEG) White Blood Count 14.1 x10^3/uL (4.0-11.0) Red Blood Count 4.44 x10^6/uL (3.50-5.40) Hemoglobin 11.7 g/dL (12.0-15.5) Hematocrit 35.4 % (36.0-47.0) Mean Corpuscular Volume 80 fL (79-100) Mean Corpuscular Hemoglobin 26 pg (25-35) Mean Corpuscular Hemoglobin Concent 33 g/dL (31-37) Red Cell Distribution Width 15.5 % (11.5-14.5) Platelet Count 233 x10^3/uL (140-400) Neutrophils (%) (Auto) 68 % (31-73) Lymphocytes (%) (Auto) 20 % (24-48) Monocytes (%) (Auto) 9 % (0-9) Eosinophils (%) (Auto) 2 % (0-3) Basophils (%) (Auto) 1 % (0-3) Neutrophils # (Auto) 9.6 x10^3/uL (1.8-7.7) Lymphocytes # (Auto) 2.8 x10^3/uL (1.0-4.8) Monocytes # (Auto) 1.3 x10^3/uL (0.0-1.1) Eosinophils # (Auto) 0.3 x10^3/uL (0.0-0.7) Basophils # (Auto) 0.1 x10^3/uL (0.0-0.2) Segmented Neutrophils % 64 % (35-66) Band Neutrophils % 1 % (0-9) Lymphocytes % 27 % (24-48) Monocytes % 5 % (0-10) Eosinophils % 3 % (0-5) Platelet Estimate Adequate (ADEQUATE) Large Platelets Present Poikilocytosis Slight Basophilic Stippling Present Anisocytosis Slight Tear Drop Cells Occ Ovalocytes Occ Sodium Level 140 mmol/L (136-145) Potassium Level 4.4 mmol/L (3.5-5.1) Chloride Level 106 mmol/L (98-107) Carbon Dioxide Level 22 mmol/L (21-32) Anion Gap 12 (6-14) Blood Urea Nitrogen 15 mg/dL (7-20) Creatinine 0.5 mg/dL (0.6-1.0) Estimated GFR (Cockcroft-Gault) 125.0 BUN/Creatinine Ratio 30 (6-20) Glucose Level 96 mg/dL (70-99) Lactic Acid Level 1.2 mmol/L (0.4-2.0) Calcium Level 8.4 mg/dL (8.5-10.1) Magnesium Level 1.9 mg/dL (1.8-2.4) Total Bilirubin 0.4 mg/dL (0.2-1.0) Aspartate Amino Transf (AST/SGOT) 57 U/L (15-37) Alanine Aminotransferase (ALT/SGPT) 40 U/L (14-59) Alkaline Phosphatase 110 U/L (46-116) Ammonia 17 mcmol/L (11-34) Creatine Kinase 151 U/L (26-192) Troponin I High Sensitivity 6 ng/L (4-50) JG-Ect-Q-Type Natriuretic Peptide 589 pg/mL (0-124) Total Protein 6.5 g/dL (6.4-8.2) Albumin 3.2 g/dL (3.4-5.0) Albumin/Globulin Ratio 1.0 (1.0-1.7) Ethyl Alcohol Level < 10 mg/dL (0-10) SARS-CoV-2 RNA (BRONWYN) Negative (Negative) SARS-CoV-2 Antigen (Rapid) Negative (NEGATIVE) Prothrombin Time 49.8 SEC (11.7-14.0) Prothromb Time International Ratio 5.7 (0.8-1.1) Test 04/22/21 03:20 Prothrombin Time 41.8 SEC (11.7-14.0) Prothromb Time International Ratio 4.5 (0.8-1.1) Laboratory Tests Test 04/21/21 19:00 04/22/21 03:20 Prothrombin Time 49.8 SEC (11.7-14.0) 41.8 SEC (11.7-14.0) Prothromb Time International Ratio 5.7 (0.8-1.1) 4.5 (0.8-1.1) Medications Active Scripts Medications Dose Route/Sig Max Daily Dose Days Date Category Budesonide 0.5 Mg/2 Ml Ampul.neb 0.5 Mg NEB RTBID 06/04/19 Rx Duoneb 0.5-3(2.5) Mg/3 Ml (Albuterol/Ipratropium) 3 Ml Ampul.neb 3 Ml NEB Q4HRS 06/04/19 Rx Morphine Sulfate Er (Morphine Sulfate) 30 Mg Cpmp.24hr 30 Mg PO BID PRN 06/04/19 Rx Warfarin Sodium 5 Mg Tablet 5 Mg PO QMWFSA 05/24/19 Reported Warfarin Sodium 2.5 Mg Tablet 2.5 Mg PO QTUTHSA 05/24/19 Reported Magnesium (Magnesium Oxide) 250 Mg Tablet 2 Tab PO DAILY 30 05/24/19 Reported Citracal + D Maximum Caplet (Calcium Citrate/Vitamin D3) 1 Each Tablet 1 Each PO DAILYBFRLUN 05/24/19 Reported Centrum Silver Women Tablet (Multivits-Min/Iron/FA/Lutein) 1 Each Tablet 1 Each PO 3X/WEEK 05/24/19 Reported Preservision Areds Softgel (Vit A/Vit C/Vit E/Zinc/Copper) 1 Each Capsule 2 Cap PO BID 30 05/24/19 Reported Klor-Con-Ef 25 Meq Tab Eff (Potassium Bicarbonate/Cit Ac) 25 Meq Tablet.eff 1 Tab PO DAILY 30 05/24/19 Reported Loraine Allergy (Fexofenadine Hcl) 180 Mg Tablet 1 Tab PO DAILY 14 05/24/19 Reported Iron 18 Mg Tablet 65 Mg PO DAILYBFRLUN 05/24/19 Reported Cyclobenzaprine Hcl 10 Mg Tablet 1 Tab PO TID 05/23/19 Reported Gabapentin 600 Mg Tablet 600 Mg PO TID 05/23/19 Reported Topiramate 25 Mg Tablet 1 Tab PO BID 30 05/23/19 Reported Fluoxetine Hcl 40 Mg Capsule 1 Cap PO DAILY 05/23/19 Reported Omeprazole 40 Mg Capsule.dr 1 Cap PO DAILY 05/23/19 Reported Impression . IMPRESSION: 1. Acute hypoxemic respiratory failure, multifactorial. 2. Abnormal x-ray, compatible with right upper lobe infiltrates, suspect possible aspiration. 3. Abnormal x-ray. 4. Acute exacerbation of chronic obstructive pulmonary disease. 5. Tobacco dependence in remission since 2019. 6. Toxic encephalopathy, present upon admission. 7. Protein malnutrition, present upon admission. 8. Leukocytosis. 9. Dysphagia Chest CT 1. Confluent opacities in the lower lobes and mild groundglass opacities in the right upper and middle lobes, suspicious for pneumonia. 2. Worsened T12 vertebral body fracture, now severe with vertebral plana deformity and 6 mm retropulsion of the posterior cortex. This results in moderate to severe canal narrowing. This has worsened from 2019 but is of uncertain acuity. Correlate with physical exam. MRI of the thoracic spine could be obtained to further evaluate if there is concern for acute cord compression. 3. Worsened, now severe height loss of the T5 compression fracture without retropulsion of cortex. Plan . Update 04/22 Continue current support Zosyn Follow dysphagia diet CT chest confirmed infiltrates right upper lobe and bases. Discussed above with at the bedside. 04/21 PLAN: 1. Recommend continued support with oxygen supplementation. 2. Zosyn. 3. Solu-Medrol. 4. Obtain CT chest to better delineate the infiltrates. 5. Speech evaluation. 6. Titrate FiO2 down. I do appreciate the privilege in sharing in the patient's care. GUNNAR TRIPP MD Apr 22, 2021 09:13
[2021-04-22 10:53] VITALS: BP 101/63
[2021-04-22 11:29] LABS: BASO % 0 % (0-3); EOS % 0 % (0-3); HEMATOCRIT 33.1 % (36.0-47.0); HEMOGLOBIN 10.7 g/dL (12.0-15.5); LYMPH # 0.9 x10^3/uL (1.0-4.8); LYMPH % 9 % (24-48); MEAN CORPUSCULAR HEMOGLOBIN 26 pg (25-35); MEAN CORPUSCULAR HGB CONC 32 g/dL (31-37); MEAN CORPUSCULAR VOLUME 81 fL (79-100); MONO # 0.2 x10^3/uL (0.0-1.1); MONO % 3 % (0-9); NEUT % 88 % (31-73); PLATELET COUNT 220 x10^3/uL (140-400); RED BLOOD COUNT 4.08 x10^6/uL (3.50-5.40); RED CELL DISTRIBUTION WIDTH 15.9 % (11.5-14.5); WHITE BLOOD COUNT 9.1 x10^3/uL (4.0-11.0)
[2021-04-22 15:09] VITALS: BP 110/61
[2021-04-22 19:00] VITALS: BP 91/48
[2021-04-22] MEDS: ATORVASTATIN CALCIUM 40 MG TABLET. PO SCH (20:37)
[2021-04-22] MEDS: tiZANidine 4 MG TABLET. PO PRN (20:44)
--- NOTE | 2021-04-22 20:58 | PDOC ---
Provider Note Date of Service: DATE: 04/22/21 TIME: 20:23 Provider Note Patient seen and examined at 1530 consulted for thoracic compression fracture admitted with SOA and cough, pneumonia reports chronic back pain, reports that she is able to walk mild tenderness of the thoracolumbar region with palpation, CABRERA CT chest with Worsened T12 vertebral body fracture, now severe with vertebral plana deformity and 6 mm retropulsion of the posterior cortex. This results in moderate to severe canal narrowing. This has worsened from 2019 but is of uncertain acuity. Worsened, now severe height loss of the T5 compression fracture without retropulsion of cortex. Patient reports that fractures have been evaluated at and because of her severe osteoporosis, surgery was not recommended Physical therapy with activity as tolerated Justifications for Admission Other Justification JULY JIM MD Apr 22, 2021 20:58
[2021-04-22 22:54] VITALS: BP 118/66
[2021-04-23] VITALS (7 sets, daily range): BP systolic 99–139; BP diastolic 52–79
[2021-04-23] MEDS: PIPERACILLIN/TAZOBACTAM 3.375 GM in IV NORMAL SALINE 50ML 50 ML IV SCH ×4 (06:12→23:41)
[2021-04-23 07:35] LABS: BASO % 0 % (0-3); EOS % 0 % (0-3); HEMATOCRIT 32.3 % (36.0-47.0); HEMOGLOBIN 10.7 g/dL (12.0-15.5); LYMPH # 1.7 x10^3/uL (1.0-4.8); LYMPH % 19 % (24-48); MEAN CORPUSCULAR HEMOGLOBIN 27 pg (25-35); MEAN CORPUSCULAR HGB CONC 33 g/dL (31-37); MEAN CORPUSCULAR VOLUME 81 fL (79-100); MONO # 0.6 x10^3/uL (0.0-1.1); MONO % 7 % (0-9); NEUT # 6.6 x10^3/uL (1.8-7.7); NEUT % 74 % (31-73); PLATELET COUNT 221 x10^3/uL (140-400); RED BLOOD COUNT 4.01 x10^6/uL (3.50-5.40); RED CELL DISTRIBUTION WIDTH 15.7 % (11.5-14.5); WHITE BLOOD COUNT 8.9 x10^3/uL (4.0-11.0)
[2021-04-23 07:47] LABS: PROTHROMBIN TIME PATIENT 32.5 SEC (11.7-14.0)
[2021-04-23] MEDS: IPRATRPIUM/ALBUTEROL 0.5/2.5MG 3 ML NEBU. NEB SCH ×4 (07:51→20:25)
[2021-04-23] MEDS: TOPIRAMATE 25 MG TABLET. PO SCH ×2 (08:28→20:46)
[2021-04-23] MEDS: FLUoxetine HCL 20 MG CAPSULE PO SCH (08:28)
[2021-04-23] MEDS: PREGABALIN 50 MG CAPSULE PO SCH ×3 (08:29→20:46)
[2021-04-23] MEDS: methylPREDNISolone SOD SUCC PF 40 MG/ML VIAL. IV SCH ×2 (08:29→20:45)
[2021-04-23 08:31] LABS: ALBUMIN 2.9 g/dL (3.4-5.0); ALBUMIN/GLOBULIN RATIO 0.8 (1.0-1.7); CALCIUM 8.5 mg/dL (8.5-10.1); CREATININE 0.7 mg/dL (0.6-1.0); GFR 84.8; TOTAL BILIRUBIN 0.3 mg/dL (0.2-1.0); TOTAL PROTEIN 6.7 g/dL (6.4-8.2)
--- NOTE | 2021-04-23 09:17 | PDOC ---
PULMONARY PROGRESS NOTES DATE: 04/23/21 TIME: 09:17 Subjective Patient is currently eating, continues to cough, not more short of air. Vitals Vital Signs Date Time Temp Pulse Resp B/P (MAP) Pulse Ox O2 Delivery O2 Flow Rate FiO2 04/23/21 07:54 97 Nasal Cannula 5.0 04/23/21 07:00 97.7 68 17 133/77 (95) 97.7 ROS: No Nausea, No Chest Pain, No Abdominal Pain, No Increase Cough General: Alert, No acute distress Lungs: Other (COPD, Pneumonia) Cardiovascular: S1, S2 Abdomen: Soft, Non-tender, Other Extremities: No Edema, Other Labs Laboratory Tests Test 04/21/21 19:00 04/22/21 03:20 04/23/21 06:45 Prothrombin Time 49.8 SEC (11.7-14.0) 41.8 SEC (11.7-14.0) 32.5 SEC (11.7-14.0) Prothromb Time International Ratio 5.7 (0.8-1.1) 4.5 (0.8-1.1) 3.3 (0.8-1.1) White Blood Count 9.1 x10^3/uL (4.0-11.0) 8.9 x10^3/uL (4.0-11.0) Red Blood Count 4.08 x10^6/uL (3.50-5.40) 4.01 x10^6/uL (3.50-5.40) Hemoglobin 10.7 g/dL (12.0-15.5) 10.7 g/dL (12.0-15.5) Hematocrit 33.1 % (36.0-47.0) 32.3 % (36.0-47.0) Mean Corpuscular Volume 81 fL (79-100) 81 fL (79-100) Mean Corpuscular Hemoglobin 26 pg (25-35) 27 pg (25-35) Mean Corpuscular Hemoglobin Concent 32 g/dL (31-37) 33 g/dL (31-37) Red Cell Distribution Width 15.9 % (11.5-14.5) 15.7 % (11.5-14.5) Platelet Count 220 x10^3/uL (140-400) 221 x10^3/uL (140-400) Neutrophils (%) (Auto) 88 % (31-73) 74 % (31-73) Lymphocytes (%) (Auto) 9 % (24-48) 19 % (24-48) Monocytes (%) (Auto) 3 % (0-9) 7 % (0-9) Eosinophils (%) (Auto) 0 % (0-3) 0 % (0-3) Basophils (%) (Auto) 0 % (0-3) 0 % (0-3) Neutrophils # (Auto) 8.0 x10^3/uL (1.8-7.7) 6.6 x10^3/uL (1.8-7.7) Lymphocytes # (Auto) 0.9 x10^3/uL (1.0-4.8) 1.7 x10^3/uL (1.0-4.8) Monocytes # (Auto) 0.2 x10^3/uL (0.0-1.1) 0.6 x10^3/uL (0.0-1.1) Eosinophils # (Auto) 0.0 x10^3/uL (0.0-0.7) 0.0 x10^3/uL (0.0-0.7) Basophils # (Auto) 0.0 x10^3/uL (0.0-0.2) 0.0 x10^3/uL (0.0-0.2) Sodium Level 143 mmol/L (136-145) Potassium Level 4.0 mmol/L (3.5-5.1) Chloride Level 107 mmol/L (98-107) Carbon Dioxide Level 26 mmol/L (21-32) Anion Gap 10 (6-14) Blood Urea Nitrogen 21 mg/dL (7-20) Creatinine 0.7 mg/dL (0.6-1.0) Estimated GFR (Cockcroft-Gault) 84.8 BUN/Creatinine Ratio 30 (6-20) Glucose Level 124 mg/dL (70-99) Calcium Level 8.5 mg/dL (8.5-10.1) Total Bilirubin 0.3 mg/dL (0.2-1.0) Aspartate Amino Transf (AST/SGOT) 26 U/L (15-37) Alanine Aminotransferase (ALT/SGPT) 32 U/L (14-59) Alkaline Phosphatase 91 U/L (46-116) Total Protein 6.7 g/dL (6.4-8.2) Albumin 2.9 g/dL (3.4-5.0) Albumin/Globulin Ratio 0.8 (1.0-1.7) Laboratory Tests Test 04/23/21 06:45 White Blood Count 8.9 x10^3/uL (4.0-11.0) Red Blood Count 4.01 x10^6/uL (3.50-5.40) Hemoglobin 10.7 g/dL (12.0-15.5) Hematocrit 32.3 % (36.0-47.0) Mean Corpuscular Volume 81 fL (79-100) Mean Corpuscular Hemoglobin 27 pg (25-35) Mean Corpuscular Hemoglobin Concent 33 g/dL (31-37) Red Cell Distribution Width 15.7 % (11.5-14.5) Platelet Count 221 x10^3/uL (140-400) Neutrophils (%) (Auto) 74 % (31-73) Lymphocytes (%) (Auto) 19 % (24-48) Monocytes (%) (Auto) 7 % (0-9) Eosinophils (%) (Auto) 0 % (0-3) Basophils (%) (Auto) 0 % (0-3) Neutrophils # (Auto) 6.6 x10^3/uL (1.8-7.7) Lymphocytes # (Auto) 1.7 x10^3/uL (1.0-4.8) Monocytes # (Auto) 0.6 x10^3/uL (0.0-1.1) Eosinophils # (Auto) 0.0 x10^3/uL (0.0-0.7) Basophils # (Auto) 0.0 x10^3/uL (0.0-0.2) Prothrombin Time 32.5 SEC (11.7-14.0) Prothromb Time International Ratio 3.3 (0.8-1.1) Sodium Level 143 mmol/L (136-145) Potassium Level 4.0 mmol/L (3.5-5.1) Chloride Level 107 mmol/L (98-107) Carbon Dioxide Level 26 mmol/L (21-32) Anion Gap 10 (6-14) Blood Urea Nitrogen 21 mg/dL (7-20) Creatinine 0.7 mg/dL (0.6-1.0) Estimated GFR (Cockcroft-Gault) 84.8 BUN/Creatinine Ratio 30 (6-20) Glucose Level 124 mg/dL (70-99) Calcium Level 8.5 mg/dL (8.5-10.1) Total Bilirubin 0.3 mg/dL (0.2-1.0) Aspartate Amino Transf (AST/SGOT) 26 U/L (15-37) Alanine Aminotransferase (ALT/SGPT) 32 U/L (14-59) Alkaline Phosphatase 91 U/L (46-116) Total Protein 6.7 g/dL (6.4-8.2) Albumin 2.9 g/dL (3.4-5.0) Albumin/Globulin Ratio 0.8 (1.0-1.7) Medications Active Scripts Medications Dose Route/Sig Max Daily Dose Days Date Category Budesonide 0.5 Mg/2 Ml Ampul.neb 0.5 Mg NEB RTBID 06/04/19 Rx Duoneb 0.5-3(2.5) Mg/3 Ml (Albuterol/Ipratropium) 3 Ml Ampul.neb 3 Ml NEB Q4HRS 06/04/19 Rx Morphine Sulfate Er (Morphine Sulfate) 30 Mg Cpmp.24hr 30 Mg PO BID PRN 06/04/19 Rx Warfarin Sodium 5 Mg Tablet 5 Mg PO QMWFSA 05/24/19 Reported Warfarin Sodium 2.5 Mg Tablet 2.5 Mg PO QTUTHSA 05/24/19 Reported Magnesium (Magnesium Oxide) 250 Mg Tablet 2 Tab PO DAILY 30 05/24/19 Reported Citracal + D Maximum Caplet (Calcium Citrate/Vitamin D3) 1 Each Tablet 1 Each PO DAILYBFRLUN 05/24/19 Reported Centrum Silver Women Tablet (Multivits-Min/Iron/FA/Lutein) 1 Each Tablet 1 Each PO 3X/WEEK 05/24/19 Reported Preservision Areds Softgel (Vit A/Vit C/Vit E/Zinc/Copper) 1 Each Capsule 2 Cap PO BID 30 05/24/19 Reported Klor-Con-Ef 25 Meq Tab Eff (Potassium Bicarbonate/Cit Ac) 25 Meq Tablet.eff 1 Tab PO DAILY 30 12/5/19 Reported Loraine Allergy (Fexofenadine Hcl) 180 Mg Tablet 1 Tab PO DAILY 14 05/24/19 Reported Iron 18 Mg Tablet 65 Mg PO DAILYBFRLUN 05/24/19 Reported Cyclobenzaprine Hcl 10 Mg Tablet 1 Tab PO TID 05/23/19 Reported Gabapentin 600 Mg Tablet 600 Mg PO TID 05/23/19 Reported Topiramate 25 Mg Tablet 1 Tab PO BID 30 05/23/19 Reported Fluoxetine Hcl 40 Mg Capsule 1 Cap PO DAILY 05/23/19 Reported Omeprazole 40 Mg Capsule.dr 1 Cap PO DAILY 05/23/19 Reported Impression . IMPRESSION: 1. Acute hypoxemic respiratory failure, multifactorial. 2. Abnormal x-ray, compatible with right upper lobe infiltrates, suspect possible aspiration. 3. Abnormal x-ray. 4. Acute exacerbation of chronic obstructive pulmonary disease. 5. Tobacco dependence in remission since 2019. 6. Toxic encephalopathy, present upon admission. 7. Protein malnutrition, present upon admission. 8. Leukocytosis. 9. Dysphagia Chest CT 1. Confluent opacities in the lower lobes and mild groundglass opacities in the right upper and middle lobes, suspicious for pneumonia. 2. Worsened T12 vertebral body fracture, now severe with vertebral plana deformity and 6 mm retropulsion of the posterior cortex. This results in moderate to severe canal narrowing. This has worsened from 2019 but is of uncertain acuity. Correlate with physical exam. MRI of the thoracic spine could be obtained to further evaluate if there is concern for acute cord compression. 3. Worsened, now severe height loss of the T5 compression fracture without retropulsion of cortex. Plan . Updated 04/23 Change antibiotics to p.o. Continue current support Possible discharge in the a.m. Update 04/22 Continue current support Zosyn Follow dysphagia diet CT chest confirmed infiltrates right upper lobe and bases. Discussed above with at the bedside. 04/21 PLAN: 1. Recommend continued support with oxygen supplementation. 2. Zosyn. 3. Solu-Medrol. 4. Obtain CT chest to better delineate the infiltrates. 5. Speech evaluation. 6. Titrate FiO2 down. I do appreciate the privilege in sharing in the patient's care. GUNNAR TRIPP MD Apr 23, 2021 09:17
--- NOTE | 2021-04-23 10:50 | NUR ---
SW following. Discussed with RN, pt from home with , uses oxygen at home, cardiac diet, COVID-19 negative. No surgery planned. PT/OT ordered. RN anticipates discharge in the next 24-48 hours. SW will continue to follow.
--- NOTE | 2021-04-23 11:09 | PDOC ---
[employer] PROGRESS NOTE Date of Service DOS: DATE: 04/23/21 TIME: 11:04 Chief Complaint Chief Complaint Pneumonia Chronic Respiratory Failure with Hypoxia COPD AMS Osteoporosis Psoriatic Arthritis Sepsis Crohn's Disease Potential Acute Cord Compression (due to worsened height of T5 compression fracture from chest CT) Tobacco dependence in remission since 2019 Dysphagia History of Present Illness History of Present Illness 04/23: Pt was seen, evaluated, and their chart was reviewed. Pt is feeling fine for the most part, but her reports she's been a lot more confused lately with brain fog. Discussed with RN and SW. 04/22: Pt was seen, evaluated, and their chart was reviewed. Pt states that she's feeling okay and inquiring about her Chest CT scan in which she was explained she has pneumonia. Discussed with RN and JIMMY. Vitals/I&O Vitals/I&O: Vital Signs Date Time Temp Pulse Resp B/P (MAP) Pulse Ox O2 Delivery O2 Flow Rate FiO2 04/23/21 07:54 97 Nasal Cannula 5.0 04/23/21 07:00 97.7 68 17 133/77 (95) 97.7 I & O 04/22/21 04/22/21 04/23/21 15:00 23:00 07:00 Intake Total 1332 ml 240 ml Output Total 450 ml 300 ml Balance 882 ml -60 ml Physical Exam General: Alert, Cooperative, No acute distress Heart: Regular rate Lungs: Other (COPD, Pneumonia) Abdomen: Normal bowel sounds Extremities: No clubbing, No cyanosis, No edema Skin: No rashes Labs Labs: Laboratory Tests Test 04/23/21 06:45 White Blood Count 8.9 x10^3/uL (4.0-11.0) Red Blood Count 4.01 x10^6/uL (3.50-5.40) Hemoglobin 10.7 g/dL (12.0-15.5) Hematocrit 32.3 % (36.0-47.0) Mean Corpuscular Volume 81 fL (79-100) Mean Corpuscular Hemoglobin 27 pg (25-35) Mean Corpuscular Hemoglobin Concent 33 g/dL (31-37) Red Cell Distribution Width 15.7 % (11.5-14.5) Platelet Count 221 x10^3/uL (140-400) Neutrophils (%) (Auto) 74 % (31-73) Lymphocytes (%) (Auto) 19 % (24-48) Monocytes (%) (Auto) 7 % (0-9) Eosinophils (%) (Auto) 0 % (0-3) Basophils (%) (Auto) 0 % (0-3) Neutrophils # (Auto) 6.6 x10^3/uL (1.8-7.7) Lymphocytes # (Auto) 1.7 x10^3/uL (1.0-4.8) Monocytes # (Auto) 0.6 x10^3/uL (0.0-1.1) Eosinophils # (Auto) 0.0 x10^3/uL (0.0-0.7) Basophils # (Auto) 0.0 x10^3/uL (0.0-0.2) Prothrombin Time 32.5 SEC (11.7-14.0) Prothromb Time International Ratio 3.3 (0.8-1.1) Sodium Level 143 mmol/L (136-145) Potassium Level 4.0 mmol/L (3.5-5.1) Chloride Level 107 mmol/L (98-107) Carbon Dioxide Level 26 mmol/L (21-32) Anion Gap 10 (6-14) Blood Urea Nitrogen 21 mg/dL (7-20) Creatinine 0.7 mg/dL (0.6-1.0) Estimated GFR (Cockcroft-Gault) 84.8 BUN/Creatinine Ratio 30 (6-20) Glucose Level 124 mg/dL (70-99) Calcium Level 8.5 mg/dL (8.5-10.1) Total Bilirubin 0.3 mg/dL (0.2-1.0) Aspartate Amino Transf (AST/SGOT) 26 U/L (15-37) Alanine Aminotransferase (ALT/SGPT) 32 U/L (14-59) Alkaline Phosphatase 91 U/L (46-116) Total Protein 6.7 g/dL (6.4-8.2) Albumin 2.9 g/dL (3.4-5.0) Albumin/Globulin Ratio 0.8 (1.0-1.7) Review of Systems Review of Systems: ROS Negative Assessment and Plan Assessmemt and Plan Problems Medical Problems: (1) Altered mental status Status: Acute (2) Chronic respiratory failure with hypoxia Status: Acute (3) COPD (chronic obstructive pulmonary disease) Status: Acute (4) Pneumonia Status: Acute Pneumonia Chronic Respiratory Failure with Hypoxia COPD AMS Osteoporosis Psoriatic Arthritis Sepsis Crohn's Disease Potential Acute Cord Compression (due to worsened height of T5 compression fracture from chest CT) Tobacco dependence in remission since 2019 Dysphagia Plan: - Continue IV Abx, fluids, breathing instruments and give oxygen as needed - Continue Home medications - Encourage p.o. intake - Continue to trend labs - DVT Prophylaxis - Continue PT/OT - Start dysphagia diet - Appreciate subspecialist input FULL CODE Discharge, pending blender operator input Comment Review of Relevant I have reviewed the following items fernando (where applicable) has been applied. Medications: Current Medications Medications (Trade) Dose Ordered Sig/Hodan Route PRN Reason Start Time Stop Time Status Last Admin Dose Admin Warfarin Sodium (Coumadin - No Dose Today) 1 each 1X WARF ONCE 04/22/21 16:00 04/22/21 16:01 DC 04/22/21 16:24 Justifications for Admission Other Justification LOAN LANG III DO Apr 23, 2021 11:09
--- NOTE | 2021-04-23 11:26 | NUR ---
Pharmacy Warfarin Dosing Note S:Pharmacy consulted to assist with anticoagulation therapy started with target INR: 2 -3 O:JANET IRVIN is a 61 year old F with h/o DVT/PE LABS: Last INR: 3.3 Last HGB: 10.7 Last HCT: 32.3 Last PLT: 221 Last dose of Held Previous Regimen: Vitamin K given: N A:INR of 3.3 is above desired range. Target range for this patient is: 2 -3 P: Warfarin dose: Hold Today Bridge Therapy: None Next INR due 04/24/21 Pharmacy anticoagulation service will continue to follow. MANISH ZAVALA Sher, 04/23/21 1125
[2021-04-23] MEDS: ATORVASTATIN CALCIUM 40 MG TABLET. PO SCH (20:45)
[2021-04-23] MEDS: LACTOBACILLUS RHAMNOSUS GG 1 CAPSULE. PO SCH (20:45)
[2021-04-23] MEDS: tiZANidine 4 MG TABLET. PO PRN (20:47)
[2021-04-24 03:00] VITALS: BP 140/84
[2021-04-24] MEDS: PIPERACILLIN/TAZOBACTAM 3.375 GM in IV NORMAL SALINE 50ML 50 ML IV SCH ×2 (05:48→12:15)
[2021-04-24 07:00] VITALS: BP 103/65
[2021-04-24] MEDS: IPRATRPIUM/ALBUTEROL 0.5/2.5MG 3 ML NEBU. NEB SCH ×2 (07:26→11:23)
[2021-04-24 07:50] LABS: BASO % 0 % (0-3); EOS % 0 % (0-3); HEMATOCRIT 32.6 % (36.0-47.0); HEMOGLOBIN 10.8 g/dL (12.0-15.5); LYMPH # 2.3 x10^3/uL (1.0-4.8); LYMPH % 28 % (24-48); MEAN CORPUSCULAR HEMOGLOBIN 27 pg (25-35); MEAN CORPUSCULAR HGB CONC 33 g/dL (31-37); MEAN CORPUSCULAR VOLUME 80 fL (79-100); MONO # 0.6 x10^3/uL (0.0-1.1); MONO % 8 % (0-9); NEUT # 5.3 x10^3/uL (1.8-7.7); NEUT % 64 % (31-73); PLATELET COUNT 242 x10^3/uL (140-400); RED BLOOD COUNT 4.06 x10^6/uL (3.50-5.40); RED CELL DISTRIBUTION WIDTH 15.9 % (11.5-14.5); WHITE BLOOD COUNT 8.2 x10^3/uL (4.0-11.0)
[2021-04-24 08:14] LABS: ALBUMIN 2.9 g/dL (3.4-5.0); ALBUMIN/GLOBULIN RATIO 0.8 (1.0-1.7); CALCIUM 8.3 mg/dL (8.5-10.1); CREATININE 0.7 mg/dL (0.6-1.0); GFR 84.8; POTASSIUM 3.9 mmol/L (3.5-5.1); TOTAL BILIRUBIN 0.3 mg/dL (0.2-1.0); TOTAL PROTEIN 6.7 g/dL (6.4-8.2)
--- NOTE | 2021-04-24 08:26 | PDOC ---
PULMONARY PROGRESS NOTES DATE: 04/24/21 TIME: 08:26 Subjective Patient feels better, less short of air Vitals Vital Signs Date Time Temp Pulse Resp B/P (MAP) Pulse Ox O2 Delivery O2 Flow Rate FiO2 04/24/21 07:27 95 Nasal Cannula 3.0 04/24/21 07:00 98.0 87 16 103/65 (78) 98.0 ROS: No Nausea, No Chest Pain, No Abdominal Pain, No Increase Cough General: Alert, No acute distress Lungs: Other (COPD, Pneumonia) Cardiovascular: S1, S2 Abdomen: Soft, Non-tender, Other Extremities: No Edema, Other Labs Laboratory Tests Test 04/23/21 06:45 04/24/21 07:30 White Blood Count 8.9 x10^3/uL (4.0-11.0) 8.2 x10^3/uL (4.0-11.0) Red Blood Count 4.01 x10^6/uL (3.50-5.40) 4.06 x10^6/uL (3.50-5.40) Hemoglobin 10.7 g/dL (12.0-15.5) 10.8 g/dL (12.0-15.5) Hematocrit 32.3 % (36.0-47.0) 32.6 % (36.0-47.0) Mean Corpuscular Volume 81 fL (79-100) 80 fL (79-100) Mean Corpuscular Hemoglobin 27 pg (25-35) 27 pg (25-35) Mean Corpuscular Hemoglobin Concent 33 g/dL (31-37) 33 g/dL (31-37) Red Cell Distribution Width 15.7 % (11.5-14.5) 15.9 % (11.5-14.5) Platelet Count 221 x10^3/uL (140-400) 242 x10^3/uL (140-400) Neutrophils (%) (Auto) 74 % (31-73) 64 % (31-73) Lymphocytes (%) (Auto) 19 % (24-48) 28 % (24-48) Monocytes (%) (Auto) 7 % (0-9) 8 % (0-9) Eosinophils (%) (Auto) 0 % (0-3) 0 % (0-3) Basophils (%) (Auto) 0 % (0-3) 0 % (0-3) Neutrophils # (Auto) 6.6 x10^3/uL (1.8-7.7) 5.3 x10^3/uL (1.8-7.7) Lymphocytes # (Auto) 1.7 x10^3/uL (1.0-4.8) 2.3 x10^3/uL (1.0-4.8) Monocytes # (Auto) 0.6 x10^3/uL (0.0-1.1) 0.6 x10^3/uL (0.0-1.1) Eosinophils # (Auto) 0.0 x10^3/uL (0.0-0.7) 0.0 x10^3/uL (0.0-0.7) Basophils # (Auto) 0.0 x10^3/uL (0.0-0.2) 0.0 x10^3/uL (0.0-0.2) Prothrombin Time 32.5 SEC (11.7-14.0) 21.0 SEC (11.7-14.0) Prothromb Time International Ratio 3.3 (0.8-1.1) 1.8 (0.8-1.1) Sodium Level 143 mmol/L (136-145) 141 mmol/L (136-145) Potassium Level 4.0 mmol/L (3.5-5.1) 3.9 mmol/L (3.5-5.1) Chloride Level 107 mmol/L (98-107) 104 mmol/L (98-107) Carbon Dioxide Level 26 mmol/L (21-32) 27 mmol/L (21-32) Anion Gap 10 (6-14) 10 (6-14) Blood Urea Nitrogen 21 mg/dL (7-20) 16 mg/dL (7-20) Creatinine 0.7 mg/dL (0.6-1.0) 0.7 mg/dL (0.6-1.0) Estimated GFR (Cockcroft-Gault) 84.8 84.8 BUN/Creatinine Ratio 30 (6-20) 23 (6-20) Glucose Level 124 mg/dL (70-99) 108 mg/dL (70-99) Calcium Level 8.5 mg/dL (8.5-10.1) 8.3 mg/dL (8.5-10.1) Total Bilirubin 0.3 mg/dL (0.2-1.0) 0.3 mg/dL (0.2-1.0) Aspartate Amino Transf (AST/SGOT) 26 U/L (15-37) 15 U/L (15-37) Alanine Aminotransferase (ALT/SGPT) 32 U/L (14-59) 23 U/L (14-59) Alkaline Phosphatase 91 U/L (46-116) 91 U/L (46-116) Total Protein 6.7 g/dL (6.4-8.2) 6.7 g/dL (6.4-8.2) Albumin 2.9 g/dL (3.4-5.0) 2.9 g/dL (3.4-5.0) Albumin/Globulin Ratio 0.8 (1.0-1.7) 0.8 (1.0-1.7) Laboratory Tests Test 04/24/21 07:30 White Blood Count 8.2 x10^3/uL (4.0-11.0) Red Blood Count 4.06 x10^6/uL (3.50-5.40) Hemoglobin 10.8 g/dL (12.0-15.5) Hematocrit 32.6 % (36.0-47.0) Mean Corpuscular Volume 80 fL (79-100) Mean Corpuscular Hemoglobin 27 pg (25-35) Mean Corpuscular Hemoglobin Concent 33 g/dL (31-37) Red Cell Distribution Width 15.9 % (11.5-14.5) Platelet Count 242 x10^3/uL (140-400) Neutrophils (%) (Auto) 64 % (31-73) Lymphocytes (%) (Auto) 28 % (24-48) Monocytes (%) (Auto) 8 % (0-9) Eosinophils (%) (Auto) 0 % (0-3) Basophils (%) (Auto) 0 % (0-3) Neutrophils # (Auto) 5.3 x10^3/uL (1.8-7.7) Lymphocytes # (Auto) 2.3 x10^3/uL (1.0-4.8) Monocytes # (Auto) 0.6 x10^3/uL (0.0-1.1) Eosinophils # (Auto) 0.0 x10^3/uL (0.0-0.7) Basophils # (Auto) 0.0 x10^3/uL (0.0-0.2) Prothrombin Time 21.0 SEC (11.7-14.0) Prothromb Time International Ratio 1.8 (0.8-1.1) Sodium Level 141 mmol/L (136-145) Potassium Level 3.9 mmol/L (3.5-5.1) Chloride Level 104 mmol/L (98-107) Carbon Dioxide Level 27 mmol/L (21-32) Anion Gap 10 (6-14) Blood Urea Nitrogen 16 mg/dL (7-20) Creatinine 0.7 mg/dL (0.6-1.0) Estimated GFR (Cockcroft-Gault) 84.8 BUN/Creatinine Ratio 23 (6-20) Glucose Level 108 mg/dL (70-99) Calcium Level 8.3 mg/dL (8.5-10.1) Total Bilirubin 0.3 mg/dL (0.2-1.0) Aspartate Amino Transf (AST/SGOT) 15 U/L (15-37) Alanine Aminotransferase (ALT/SGPT) 23 U/L (14-59) Alkaline Phosphatase 91 U/L (46-116) Total Protein 6.7 g/dL (6.4-8.2) Albumin 2.9 g/dL (3.4-5.0) Albumin/Globulin Ratio 0.8 (1.0-1.7) Medications Active Scripts Medications Dose Route/Sig Max Daily Dose Days Date Category Budesonide 0.5 Mg/2 Ml Ampul.neb 0.5 Mg NEB RTBID 06/04/19 Rx Duoneb 0.5-3(2.5) Mg/3 Ml (Albuterol/Ipratropium) 3 Ml Ampul.neb 3 Ml NEB Q4HRS 06/04/19 Rx Morphine Sulfate Er (Morphine Sulfate) 30 Mg Cpmp.24hr 30 Mg PO BID PRN 06/04/19 Rx Warfarin Sodium 5 Mg Tablet 5 Mg PO QMWFSA 05/24/19 Reported Warfarin Sodium 2.5 Mg Tablet 2.5 Mg PO QTUTHSA 05/24/19 Reported Magnesium (Magnesium Oxide) 250 Mg Tablet 2 Tab PO DAILY 30 05/24/19 Reported Citracal + D Maximum Caplet (Calcium Citrate/Vitamin D3) 1 Each Tablet 1 Each PO DAILYBFRLUN 05/24/19 Reported Centrum Silver Women Tablet (Multivits-Min/Iron/FA/Lutein) 1 Each Tablet 1 Each PO 3X/WEEK 05/24/19 Reported Preservision Areds Softgel (Vit A/Vit C/Vit E/Zinc/Copper) 1 Each Capsule 2 Cap PO BID 30 05/24/19 Reported Klor-Con-Ef 25 Meq Tab Eff (Potassium Bicarbonate/Cit Ac) 25 Meq Tablet.eff 1 Tab PO DAILY 30 05/24/19 Reported Loraine Allergy (Fexofenadine Hcl) 180 Mg Tablet 1 Tab PO DAILY 14 05/24/19 Reported Iron 18 Mg Tablet 65 Mg PO DAILYBFRLUN 05/24/19 Reported Cyclobenzaprine Hcl 10 Mg Tablet 1 Tab PO TID 05/23/19 Reported Gabapentin 600 Mg Tablet 600 Mg PO TID 05/23/19 Reported Topiramate 25 Mg Tablet 1 Tab PO BID 30 05/23/19 Reported Fluoxetine Hcl 40 Mg Capsule 1 Cap PO DAILY 05/23/19 Reported Omeprazole 40 Mg Capsule.dr 1 Cap PO DAILY 05/23/19 Reported Impression . IMPRESSION: 1. Acute hypoxemic respiratory failure, multifactorial. 2. Abnormal x-ray, compatible with right upper lobe infiltrates, suspect possible aspiration. 3. Abnormal x-ray. 4. Acute exacerbation of chronic obstructive pulmonary disease. 5. Tobacco dependence in remission since 2019. 6. Toxic encephalopathy, present upon admission. 7. Protein malnutrition, present upon admission. 8. Leukocytosis. 9. Dysphagia Chest CT 1. Confluent opacities in the lower lobes and mild groundglass opacities in the right upper and middle lobes, suspicious for pneumonia. 2. Worsened T12 vertebral body fracture, now severe with vertebral plana deformity and 6 mm retropulsion of the posterior cortex. This results in moderate to severe canal narrowing. This has worsened from 2019 but is of uncertain acuity. Correlate with physical exam. MRI of the thoracic spine could be obtained to further evaluate if there is concern for acute cord compression. 3. Worsened, now severe height loss of the T5 compression fracture without retropulsion of cortex. Plan . Updated 04/24 Discharge home today Patient has a shipping support at [facility], follow-up with pulmonary physician as instructed to do so 6-minute walk Updated 04/23 Change antibiotics to p.o. Continue current support Possible discharge in the a.pura. GUNNAR TRIPP MD Apr 24, 2021 08:26
[2021-04-24] MEDS: PREGABALIN 50 MG CAPSULE PO SCH ×2 (08:58→12:14)
[2021-04-24] MEDS: FLUoxetine HCL 20 MG CAPSULE PO SCH (08:58)
[2021-04-24] MEDS: TOPIRAMATE 25 MG TABLET. PO SCH (08:58)
[2021-04-24] MEDS: LACTOBACILLUS RHAMNOSUS GG 1 CAPSULE. PO SCH (08:59)
[2021-04-24] MEDS: methylPREDNISolone SOD SUCC PF 40 MG/ML VIAL. IV SCH (08:59)
[2021-04-24 11:00] VITALS: BP 146/71
--- NOTE | 2021-04-24 11:02 | PDOC ---
[employer] PROGRESS NOTE Date of Service DOS: DATE: 04/24/21 TIME: 10:53 Chief Complaint Chief Complaint Pneumonia Chronic Respiratory Failure with Hypoxia COPD AMS Osteoporosis Psoriatic Arthritis Sepsis Crohn's Disease Potential Acute Cord Compression (due to worsened height of T5 compression fracture from chest CT) Tobacco dependence in remission since 2019 Dysphagia History of Present Illness History of Present Illness 04/24: Pt was seen, evaluated, and their chart was reviewed. Pt's INR, BUN, and glucose seem to be decreasing back to normal. Probable discharge later today. Discussed with RN and SW. 04/23: Pt was seen, evaluated, and their chart was reviewed. Pt is feeling fine for the most part, but her reports she's been a lot more confused lately with brain fog. Discussed with RN and SW. 04/22: Pt was seen, evaluated, and their chart was reviewed. Pt states that she's feeling okay and inquiring about her Chest CT scan in which she was explained she has pneumonia. Discussed with RN and JIMMY. Vitals/I&O Vitals/I&O: Vital Signs Date Time Temp Pulse Resp B/P (MAP) Pulse Ox O2 Delivery O2 Flow Rate FiO2 04/24/21 07:27 95 Nasal Cannula 3.0 04/24/21 07:00 98.0 87 16 103/65 (78) 98.0 I & O 04/23/21 04/23/21 04/24/21 15:00 23:00 07:00 Intake Total 480 ml 560 ml 170 ml Output Total 550 ml 580 ml Balance -70 ml -20 ml 170 ml Physical Exam General: Alert, Cooperative, No acute distress Heart: Regular rate Lungs: Other (COPD, Pneumonia) Abdomen: Normal bowel sounds Extremities: No clubbing, No cyanosis, No edema Skin: No rashes Labs Labs: Laboratory Tests Test 04/24/21 07:30 White Blood Count 8.2 x10^3/uL (4.0-11.0) Red Blood Count 4.06 x10^6/uL (3.50-5.40) Hemoglobin 10.8 g/dL (12.0-15.5) Hematocrit 32.6 % (36.0-47.0) Mean Corpuscular Volume 80 fL (79-100) Mean Corpuscular Hemoglobin 27 pg (25-35) Mean Corpuscular Hemoglobin Concent 33 g/dL (31-37) Red Cell Distribution Width 15.9 % (11.5-14.5) Platelet Count 242 x10^3/uL (140-400) Neutrophils (%) (Auto) 64 % (31-73) Lymphocytes (%) (Auto) 28 % (24-48) Monocytes (%) (Auto) 8 % (0-9) Eosinophils (%) (Auto) 0 % (0-3) Basophils (%) (Auto) 0 % (0-3) Neutrophils # (Auto) 5.3 x10^3/uL (1.8-7.7) Lymphocytes # (Auto) 2.3 x10^3/uL (1.0-4.8) Monocytes # (Auto) 0.6 x10^3/uL (0.0-1.1) Eosinophils # (Auto) 0.0 x10^3/uL (0.0-0.7) Basophils # (Auto) 0.0 x10^3/uL (0.0-0.2) Prothrombin Time 21.0 SEC (11.7-14.0) Prothromb Time International Ratio 1.8 (0.8-1.1) Sodium Level 141 mmol/L (136-145) Potassium Level 3.9 mmol/L (3.5-5.1) Chloride Level 104 mmol/L (98-107) Carbon Dioxide Level 27 mmol/L (21-32) Anion Gap 10 (6-14) Blood Urea Nitrogen 16 mg/dL (7-20) Creatinine 0.7 mg/dL (0.6-1.0) Estimated GFR (Cockcroft-Gault) 84.8 BUN/Creatinine Ratio 23 (6-20) Glucose Level 108 mg/dL (70-99) Calcium Level 8.3 mg/dL (8.5-10.1) Total Bilirubin 0.3 mg/dL (0.2-1.0) Aspartate Amino Transf (AST/SGOT) 15 U/L (15-37) Alanine Aminotransferase (ALT/SGPT) 23 U/L (14-59) Alkaline Phosphatase 91 U/L (46-116) Total Protein 6.7 g/dL (6.4-8.2) Albumin 2.9 g/dL (3.4-5.0) Albumin/Globulin Ratio 0.8 (1.0-1.7) Review of Systems Review of Systems: ROS Negative Assessment and Plan Assessmemt and Plan Problems Medical Problems: (1) Altered mental status Status: Acute (2) Chronic respiratory failure with hypoxia Status: Acute (3) COPD (chronic obstructive pulmonary disease) Status: Acute (4) Pneumonia Status: Acute Pneumonia Chronic Respiratory Failure with Hypoxia COPD AMS Osteoporosis Psoriatic Arthritis Sepsis Crohn's Disease Potential Acute Cord Compression (due to worsened height of T5 compression fracture from chest CT) Tobacco dependence in remission since 2019 Dysphagia Plan: (continue the following until probable discharge later today) - Continue IV Abx, fluids, breathing instruments and give oxygen as needed - Continue Home medications - Encourage p.o. intake - Continue to trend labs - DVT Prophylaxis - Continue PT/OT - Continue dysphagia diet FULL CODE Probable Discharge later today. Comment Review of Relevant I have reviewed the following items fernando (where applicable) has been applied. Medications: Current Medications Medications (Trade) Dose Ordered Sig/Hodan Route PRN Reason Start Time Stop Time Status Last Admin Dose Admin Warfarin Sodium (Coumadin - No Dose Today) 1 each 1X WARF ONCE 04/23/21 16:00 04/23/21 16:01 DC 04/23/21 15:59 Lactobacillus Rhamnosus (Culturelle) 1 cap BID PO 04/23/21 21:00 04/24/21 08:59 Justifications for Admission Other Justification LOAN LANG III DO Apr 24, 2021 11:02
[2021-04-24] MEDS ORDERED: AMOX1TAB61 PO (11:05)
[2021-04-24] MEDS ORDERED: METH4TAB2 PO (11:05)
--- NOTE | 2021-04-24 11:11 | SNU/HH DC ---
DISCHARGE WITH HOME HEALTH DISCHARGE INFORMATION: Final Diagnosis: Problems Medical Problems: (1) Altered mental status Status: Acute (2) Chronic respiratory failure with hypoxia Status: Acute (3) COPD (chronic obstructive pulmonary disease) Status: Acute (4) Pneumonia Status: Acute Condition on Discharge: Stable CODE STATUS: Code Status: Full HOME HEALTH: Face to Face: I certify this patient is under my care and that I, or a nurse practitioner or physician's assistant manager pt working with me, had a face to face encounter that meets the physician face to face encounter requirements with this patient on []. Medical Complications: Other (Mild dementia and debility COPD) Longterm For: Assess Cardiopulm Status RN For Eval/Treatment: Yes Physical Therapy For: Evalulation/Treatment Occupational Therapy For: Evaluation/Treatment Home Health Aide For: Self-care EMERGENCY DISPATCH OPERATOR For: Community Resources Pt Meets Homebound Status: Poor coordination w/ amb. POST DISCHARGE ORDERS: Activity Instructions for Disc: Resume previous activity, Activity as tolerated Weight Bearing Status after Di: As tolerated DIET AFTER DISCHARGE: Regular Wound/Incision Care: Change dressing, Reinforce dressing PRN CHECKS AFTER DISCHARGE: Checks after discharge: Check blood press - daily, Check blood sugar, ac/hs TREATMENT/EQUIPMENT ORDERS: Adaptive Equipment Issued: None, Front wheeled walker CERTIFICATION STATEMENT: Certification Statement: Certification Statement: Based on the above finding, I certify that this patient is confined to the home and needs intermittent halfway care, physical therapy and/or speech therapy, or continues to need occupational therapy.~ This patient is under my care, and I have initiated the establishment of the plan of care.~ This patient will be followed by myself or a community physician who will periodically review the plan of care. Home Meds Active Scripts Amoxicillin/Potassium Clav (AUGMENTIN 875-125 TABLET) 1 Each Tablet, 1 TAB PO BID for . for 7 Days, #14 TAB 0 Refills Prov:CASTLE,NIAL K III DO 04/24/21 Methylprednisolone (MEDROL) 4 Mg Tab.ds.pk, 1 PKG PO UD for copd, #1 PKG Prov:CASTLE,NIAL K III DO 04/24/21 Reported Medications Rosuvastatin Calcium (CRESTOR) 40 Mg Tablet, 20 MG PO DAILY for FOR CHOLESTEROL, #30 TAB 0 Refills 04/21/21 Hydroxyzine Hcl (HYDROXYZINE HCL) 25 Mg Tablet, 1 TAB PO PRN QID for ukn, #30 TAB 04/21/21 Tizanidine Hcl (TIZANIDINE HCL) 4 Mg Tablet, 4 MG PO PRN QHS PRN for MUSCLE SPASMS, TAB 04/21/21 Tizanidine Hcl (TIZANIDINE HCL) 4 Mg Tablet, 2 MG PO PRN BID PRN for MUSCLE SPASMS, TAB 04/21/21 Warfarin Sodium (WARFARIN SODIUM) 2.5 Mg Tablet, 2.5 MG PO DAILY for dvt, TAB 04/21/21 Warfarin Sodium (WARFARIN SODIUM) 5 Mg Tablet, 5 MG PO UD for dvt, #30 TAB 04/21/21 Pregabalin (LYRICA) 100 Mg Capsule, 2 CAP PO HS for unk, #90 CAP 2 Refills 04/21/21 Pregabalin (LYRICA) 100 Mg Capsule, 1 CAP PO BIDACBL for unk, #90 CAP 2 Refills 04/21/21 Topiramate (TOPIRAMATE) 50 Mg Tablet, 1.5 TAB PO Q12HR for unk for 30 Days, #90 TAB 0 Refills 04/21/21 Naratriptan Hcl (NARATRIPTAN HCL) 2.5 Mg Tablet, 2.5 MG PO UD for unk, TAB 04/21/21 Fluoxetine Hcl (FLUOXETINE HCL) 40 Mg Capsule, 1 CAP PO DAILYWBKFT for unk, #30 CAP 2 Refills 04/21/21 Discontinued Reported Medications Fexofenadine Hcl (JOCELYN ALLERGY) 180 Mg Tablet, 1 TAB PO DAILY for allergy symptoms for 14 Days, #14 TAB 0 Refills 05/24/19 Topiramate (TOPIRAMATE) 25 Mg Tablet, 1 TAB PO BID for 30 Days, #60 TAB 0 Refill s 05/23/19 Fluoxetine Hcl (FLUOXETINE HCL) 40 Mg Capsule, 1 CAP PO DAILY, #30 CAP 2 Refills 05/23/19 LOAN LANG III DO Apr 24, 2021 11:11
--- NOTE | 2021-04-24 11:15 | NUR ---
Pharmacy Warfarin Dosing Note S:Pharmacy consulted to assist with anticoagulation therapy started with target INR: 2 -3 O:JANET IRVIN is a 61 year old F with h/o DVT/PE LABS: Last INR: 1.8 Last HGB: 10.8 Last HCT: 32.6 Last PLT: 242 Last dose of Held Vitamin K given: N Drug Interaction Changes: Same Interacting Drug Ongoing Drug Interactions: fluoxetine A:INR of 1.8 is below desired range. Target range for this patient is: 2 -3 P: Warfarin dose: 5 mg Today at 1600 Bridge Therapy: None Next INR due 04/25/21 Pharmacy anticoagulation service will continue to follow. MANISH ZAVALA [facility], 04/24/21 [id number]
--- NOTE | 2021-04-24 11:17 | SNU/HH DC ---
DISCHARGE ORDERS DISCHARGE INFORMATION: FINAL DIAGNOSIS Problems Medical Problems: (1) Altered mental status Status: Acute (2) Chronic respiratory failure with hypoxia Status: Acute (3) COPD (chronic obstructive pulmonary disease) Status: Acute (4) Pneumonia Status: Acute CONDITION ON DISCHARGE: Stable CODE STATUS: Code Status: Full ALF: SNF STAY <30 DAYS: Yes HOSPICE: HOSPICE: No HOSPICE EVAL & TREAT: No LTAC: ADMIT TO LTAC: No POST DISCHARGE ORDERS: ACTIVITY ORDERS: Resume previous activity, Activity as tolerated WEIGHT BEARING STATUS: As tolerated DIET AFTER DISCHARGE: Regular WOUND/INCISION CARE: Change dressing, Reinforce dressing PRN CHECKS AFTER DISCHARGE: CHECKS AFTER DISCHARGE: Check blood press - daily, Check blood sugar, ac/hs TREATMENT/EQUIPMENT ORDERS: ADAPTIVE EQUIPMENT NEEDED: None, Front wheeled walker Physical Therapy For: Evalulation/Treatment Occupational Therapy For: Evaluation/Treatment DISCHARGE MEDICATIONS: Home Meds Active Scripts Amoxicillin/Potassium Clav (AUGMENTIN 875-125 TABLET) 1 Each Tablet, 1 TAB PO BID for . for 7 Days, #14 TAB 0 Refills Prov:CASTLE,NIAL K III DO 04/24/21 Methylprednisolone (MEDROL) 4 Mg Tab.ds.pk, 1 PKG PO UD for copd, #1 PKG Prov:CASTLE,NIAL K III DO 04/24/21 Reported Medications Rosuvastatin Calcium (CRESTOR) 40 Mg Tablet, 20 MG PO DAILY for FOR CHOLESTEROL, #30 TAB 0 Refills 04/21/21 Hydroxyzine Hcl (HYDROXYZINE HCL) 25 Mg Tablet, 1 TAB PO PRN QID for ukn, #30 TAB 04/21/21 Tizanidine Hcl (TIZANIDINE HCL) 4 Mg Tablet, 4 MG PO PRN QHS PRN for MUSCLE SPASMS, TAB 04/21/21 Tizanidine Hcl (TIZANIDINE HCL) 4 Mg Tablet, 2 MG PO PRN BID PRN for MUSCLE SPASMS, TAB 04/21/21 Warfarin Sodium (WARFARIN SODIUM) 2.5 Mg Tablet, 2.5 MG PO DAILY for dvt, TAB 04/21/21 Warfarin Sodium (WARFARIN SODIUM) 5 Mg Tablet, 5 MG PO UD for dvt, #30 TAB 04/21/21 Pregabalin (LYRICA) 100 Mg Capsule, 2 CAP PO HS for unk, #90 CAP 2 Refills 04/21/21 Pregabalin (LYRICA) 100 Mg Capsule, 1 CAP PO BIDACBL for unk, #90 CAP 2 Refills 04/21/21 Topiramate (TOPIRAMATE) 50 Mg Tablet, 1.5 TAB PO Q12HR for unk for 30 Days, #90 TAB 0 Refills 04/21/21 Naratriptan Hcl (NARATRIPTAN HCL) 2.5 Mg Tablet, 2.5 MG PO UD for unk, TAB 04/21/21 Fluoxetine Hcl (FLUOXETINE HCL) 40 Mg Capsule, 1 CAP PO [id number] for unk, #30 CAP 2 Refills 04/21/21 Discontinued Reported Medications Fexofenadine Hcl (JOCELYN ALLERGY) 180 Mg Tablet, 1 TAB PO DAILY for allergy symptoms for 14 Days, #14 TAB 0 Refills 05/24/19 Topiramate (TOPIRAMATE) 25 Mg Tablet, 1 TAB PO BID for 30 Days, #60 TAB 0 Refills 05/23/19 Fluoxetine Hcl (FLUOXETINE HCL) 40 Mg Capsule, 1 CAP PO DAILY, #30 CAP 2 Refills 05/23/19 LOAN LANG III DO Apr 24, 2021 11:17
--- NOTE | 2021-04-24 11:25 | DS ---
DATE OF DISCHARGE: 04/24/2021 ADMITTING DIAGNOSES: Pneumonia, urinary tract infection, metabolic encephalopathy, chronic obstructive pulmonary exacerbation. DISCHARGE DIAGNOSES: Resolving pneumonia, resolving urinary tract infection, resolving chronic obstructive pulmonary exacerbation, mild dementia, history of depression, anxiety, neuropathy, hyperlipidemia, chronic anticoagulation, MRSA, osteoporosis, psoriatic arthritis, previous sepsis, Crohn's, previous tobacco abuse, polypharmacy, allergic rhinitis, asthma, muscle spasms, anemia. CONSULTS: Dr. Park. PROCEDURES: None. HOSPITAL COURSE: The patient is a pleasant, middle-aged female who presented with acute on chronic respiratory failure, probably secondary to pneumonia and COPD. She was admitted. We gave her IV steroids, IV antibiotics, home meds, DVT prophylaxis and did some cardiac monitoring. We also gave her nebulizer treatments. I consulted Pulmonary Medicine. Today, I saw her and examined her. She is doing well. She wants to go home. She is at her baseline. We plan to discharge on a steroid taper and p.o. Augmentin. DISPOSITION: Home. ACTIVITY: As tolerated. DIET: Low sodium. MEDICATIONS: 1. Augmentin 875 p.o. b.i.d. for 1 week. 2. Medrol Dosepak. 3. We will continue her home medicines, which include Prozac 40 a day, hydroxyzine 25 q.i.d. p.r.n., Lyrica 100 b.i.d., Crestor 20 a day, tizanidine 2 mg b.i.d., Coumadin 5 mg a day. TOTAL TIME: [address]: Balwinder TID: [id number]
--- NOTE | 2021-04-24 12:19 | NUR ---
SW following. Discussed with RN, therapy recommending SNF. SW met with pt, pt would prefer home health, has used [facility] before. Pt has home oxygen through [facility]. SW to notify [facility] of addition liter needed with activity. James Batista RN notified of referral. Discharge order for home with home health. RN notified.
--- NOTE | 2021-04-24 13:30 | NUR ---
Discharge Note: Patient was discharged home with home health services. Patients IV was discontinued without any complications per TECHNICAL SALES REPRESENTATIVE. Patient and spouse were given discharge summary/instructions, follow-ups and educational material. Patients new prescriptions were sent to patients preferred pharmacy. Patient and spouse did not have any further questions or concerns. Patient was taken down to the main entrance via wheelchair with all personal belongings accompanied by this RN, where her spouse was waiting for her to take her home.
[2021-04-24] MEDS ORDERED: WARFARIN 5 MG TABLET. PO ONE (16:00)
== END 2021-04-24 13:30 | disposition home health service (06) | DRG 871 ==
LOC: ER 15:10 → ED HOLD 18:12 → 5 NORTH 23:34
PROVIDERS: ADMIT Internal Medicine; ATTEND Internal Medicine
DX: A41.9 Sepsis, unspecified organism (principal); G92.9 Unspecified toxic encephalopathy; J96.21 Acute and chronic respiratory failure with hypoxia; J15.6 Pneumonia due to other Gram-negative bacteria; E46 Unspecified protein-calorie malnutrition; J44.0 Chronic obstructive pulmonary disease with (acute) lower respiratory infection; J44.1 Chronic obstructive pulmonary disease with (acute) exacerbation; K50.90 Crohn's disease, unspecified, without complications; M48.54XA Collapsed vertebra, not elsewhere classified, thoracic region, initial encounter for fracture; N39.0 Urinary tract infection, site not specified; E78.5 Hyperlipidemia, unspecified; F03.90 Unspecified dementia, unspecified severity, without behavioral disturbance, psychotic disturbance, mood disturbance, and anxiety; F17.201 Nicotine dependence, unspecified, in remission; I10 Essential (primary) hypertension; L40.50 Arthropathic psoriasis, unspecified; M81.0 Age-related osteoporosis without current pathological fracture; R13.10 Dysphagia, unspecified; Z79.01 Long term (current) use of anticoagulants; Z83.3 Family history of diabetes mellitus; F32.A Depression, unspecified; F41.9 Anxiety disorder, unspecified; G47.33 Obstructive sleep apnea (adult) (pediatric); G89.29 Other chronic pain; Z88.2 Allergy status to sulfonamides; Z88.8 Allergy status to other drugs, medicaments and biological substances
CPT/HCPCS: 36415; 70450; 71045; 71250; 80053; 80307; 81001; 82140; 82550; 83605; 83735; 83880; 84484; 85007; 85025; 85610; 87040; 87086; 87426; 93005; 94618; 94640; 94760; 96361; 96374; G0480; J2310; J2543; J2920; J2930; J7030; U0003; U0005; 92526-GN; 92610-GN; 97110-GP; 97116-GP; 97535-GO; 99285-25; G0378